=== PATIENT | female | born 1935 | race Caucasian/White ===

== ENCOUNTER 2019-09-13 14:55 | Emergency (ER) | payer MEDICARE, MEDICAID, SELFPAY ==
[2019-09-13 14:57] VITALS: BP 128/81; PULSE 62; RESP 20; TEMP 37.1; O2SAT 99; BMI 42.9
[2019-09-13 15:26] VITALS: BP 124/90; PULSE 74; RESP 18; O2SAT 100
--- NOTE | 2019-09-13 15:51 | PC.NURSE ---
Dr. Contreras pagevicky
--- NOTE | 2019-09-13 15:52 | PC.NURSE ---
speaking with Dr. Contreras
--- NOTE | 2019-09-13 16:02 | PC.NURSE ---
Dr. Wan paged
[2019-09-13 16:30] VITALS: BP 131/70; PULSE 77; RESP 18; O2SAT 99
--- NOTE | 2019-09-13 18:38 | HMH.EDRECH ---
ED Disposition Clinical Impression: Encounter for wound re-check, Tracheostomy complication, unspecified Disposition: Home, Self-Care Condition on Discharge: Good Referrals: Provider,Referral, [Primary Care Provider] - - Critical Care Critical Care Time: No Attestation: On 09/13/19, the high probability of a clinically significant, sudden or life threatening deterioration of the following system(s) required my full and direct attention, intervention and personal management. The time I documented below is in addition to time spent performing reported procedures but includes the following listed in this critical care notation. Medical Decision Making - Medical Records Medical records reviewed: Yes: I reviewed the patient's medical records. - Esdras Inquiry Pt receiving controlled substance: No Vital Signs: 09/13/19 14:57 09/13/19 15:26 09/13/19 16:30 Temperature 98.7 F Temperature Source Oral Pulse Rate [Right Brachial] 62 74 77 Respiratory Rate 20 18 18 Blood Pressure [Right Arm] 128/81 124/90 131/70 Blood Pressure Mean [Right Arm] 96 101 90 Blood Pressure Source [Right Arm] Automatic Cuff Automatic Cuff Blood Pressure Position [Right Arm] Sitting Sitting Sitting 02 Sat by Pulse Oximetry 99 100 99 Oxygen Delivery Method Nasal Cannula Nasal Cannula Nasal Cannula Oxygen Flow Rate (LPM) 2 2 2 - Lab Data Lab results reviewed: Yes: I reviewed the patient's lab results. Medical Decision Narrative: Dr. Dr. Wan and he stated if it is a trach is pulled out to insert a smaller 1 obviously if patient has able to hold a conversation can she can have a cuffed trach but she can have a non-cuffed trach. But with repositioning the patient and repositioning the tracheostomy tube along with respiratory by my side they determined that the trach was not loose that it was in an appropriate way and that it just needed to be secured. Recheck HPI - General Chief Complaint: Recheck/Abnormal Lab/Rx Stated Complaint: TRACH DISLODGED Time Seen by Provider: 09/13/19 18:38 Mode of Arrival: EMS Limitations: Physical Limitations Description of Symptoms (Recalled from ER Triage Doc. by RN): PATIENT BROUGHT IN BY EMS FROM [facility] WHO SENT HER HERE BECAUSE HER TRACH HAS BECOME DISLODGED AND NEEDS TO BE REPLACED. NO DISTRESS NOTED AT THIS TIME. O2 SAT 99% WITH NC - History of Present Illness HPI narrative: 84-year-old female presents the ED from the correction. care home states that she feels like the tracheostomy has come out. In examining the patient and getting history from the patient she is able to speak with complete sentences. She is in no respiratory distress. Patient has no acute issues. - Related Data Home Medications Medication Instructions Recorded Confirmed Buspirone HCl [Buspar 10mg 10 mg PO BID PRN 05/16/19 06/17/19 tablet] Calcium Carbonate/Vitamin D3 1 each PO BID 05/16/19 06/17/19 [Calcium 500 + Vit D Caplet] Escitalopram Oxalate [Lexapro] 10 mg PO HS 05/16/19 06/17/19 Famotidine [Pepcid 20mg Tablet] 20 mg PO BID 05/16/19 06/17/19 Furosemide [Lasix 20mg tab] 20 mg PO DAILY 05/16/19 06/17/19 Ipratropium/Albuterol Sulfate 3 ml IH Q6H 05/16/19 06/17/19 [Duoneb 3mL neb] Metoprolol Succinate 50 mg PO BID 05/16/19 06/17/19 Multivitamin [Multivitamins] 1 each PO DAILY 05/16/19 06/17/19 Potassium Bicarbonate/Cit AC 20 meq PO BID 05/16/19 06/17/19 [Effer-K 20 Meq Tablet Eff] Sennosides/Docusate Sodium [Senna 1 each PO BID 05/16/19 06/17/19 Plus Tablet] Sulfamethoxazole/Trimethoprim 1 each PO BID 05/16/19 06/17/19 [Bactrim DS tablet] Tramadol HCl [Tramadol 50mg 100 mg PO Q6H PRN 05/16/19 06/17/19 Tab] Rivaroxaban [Xarelto 10mg tablet] 10 mg PO DAILY 05/26/19 06/17/19 levETIRAcetam [Keppra Xr] 750 mg PO BID 06/17/19 06/17/19 Allergies Allergy/AdvReac Type Severity Reaction Status Date / Time levofloxacin [From Levaquin] Allergy Dao
[2019-09-13 20:00] VITALS: BP 112/78; PULSE 67; RESP 18; TEMP 36.7; O2SAT 98
--- NOTE | 2019-09-13 20:07 | PC.NURSE ---
report called to ying pollard
== END 2019-09-13 20:08 ==
PROVIDERS: Emergency Provider Family Medicine
DX: J95.00 Unspecified tracheostomy complication (principal); Z51.89 Encounter for other specified aftercare; I48.20 Chronic atrial fibrillation, unspecified; C34.90 Malignant neoplasm of unspecified part of unspecified bronchus or lung; J44.9 Chronic obstructive pulmonary disease, unspecified; Z86.73 Personal history of transient ischemic attack (TIA), and cerebral infarction without residual deficits; I10 Essential (primary) hypertension; Z79.899 Other long term (current) drug therapy; Z88.1 Allergy status to other antibiotic agents
CPT/HCPCS: 99283

== ENCOUNTER 2019-10-10 14:53 | Emergency (ER) | payer MEDICARE, MEDICAID, SELFPAY ==
[2019-10-10 14:53] VITALS: BP 121/84; PULSE 80; RESP 16; TEMP 37.2; O2SAT 100; BMI 31.3
--- NOTE | 2019-10-10 15:22 | XR_ITS ---
PROCEDURE: XR CHEST PORTABLE CLINICAL HISTORY: trach Shortness of breath, DIS large tracheostomy COMPARISON: XR CHEST AP from 05/16/2019 XR CHEST PORTABLE from 05/26/2019 FINDINGS: There is cardiomegaly with mild prominence of the mediastinum. Tracheostomy tube appears in good position on the AP view. Lateral view was not obtained. There is a small right pleural effusion with elevated right hemidiaphragm. There is mild widening of the posterior interspace between the 5th and the 6th rib on the right not significantly changed. IMPRESSION: Overall no change in cardiomegaly with small right effusion with tracheostomy tube in place Dictated by: Blaine King MD 10/10/2019 19:33 Electronically signed by Blaine King MD in [place] 10/10/2019 19:33
--- NOTE | 2019-10-10 15:27 | ECG_ITS ---
APPROVED REPORT Exam: Resting ECG HR:69 bpm ECG Measurements Heart Rate 69 AXES QRSd 90 QRS 14 QT 416 T 102 QTc 445 <Conclusion> Atrial fibrillation Nonspecific T wave abnormality, probably digitalis effect Abnormal ECG Electronically signed by : Catracho Yun, 10/12/2019 15:53:32
[2019-10-10 15:31] LABS: Microscopic, Urine URINE MICROSCOPIC (MICROSCOPIC)
[2019-10-10 15:34] LABS: Appearance,Urine CLEAR (Clear); Bilirubin,Urine Negative (Negative); Blood, Urine Negative (Negative); Color,Urine YELLOW (Yellow); Glucose,Urine (UA) Negative (Negative); Ketones,Urine Negative (Negative); Leukocyte Esterase,Urine Negative (Negative); Nitrate,Urine Negative (Negative); PH,Urine 5.5 (5.0-8.5); Protein,Urine Negative (Negative); Urobilinogen,Urine 0.2 EU/dl (0.2)
[2019-10-10 15:40] LABS: Basophils # 0.5 K/mm3 (0-0.2); Eosinophils # 0.1 K/mm3 (0.0-0.4); Eosinophils % 1.5 % (0.1-12.0); Hematocrit 34.8 % (37.0-47.0); Hemoglobin 11.7 g/dL (12.2-16.2); Lymphocytes # 2.1 K/mm3 (0.7-4.5); Lymphocytes % 37.7 % (10-50); Mean Corpuscular HGB Conc 33.7 g/dL (31.8-35.4); Mean Corpuscular Hemoglobin 34.1 pg (27.0-31.2); Mean Corpuscular Volume 101.2 fl (81-99); Mean Platelet Volume 10.6 fl (7.4-10.4); Monocytes # 0.6 K/mm3 (0.1-1.0); Monocytes % 11.4 % (1.7-9.3); Neutrophils # 2.7 K/mm3 (1.8-7.8); Neutrophils % 49.4 % (37.0-80.0); Platelet Count 108 K/mm3 (142-424); Red Blood Count 3.44 M/mm3 (4.20-5.40); Red Cell Distribution Width 21.2 % (11.5-17.5); White Blood Count 5.5 K/mm3 (4.8-10.8)
--- NOTE | 2019-10-10 15:40 | HMH.EDAMS ---
ED Disposition Clinical Impression: COPD (chronic obstructive pulmonary disease) Qualifiers: COPD type: unspecified COPD Qualified Code(s): J44.9 - Chronic obstructive pulmonary disease, unspecified A-fib Qualifiers: Atrial fibrillation type: unspecified chronic Qualified Code(s): I48.20 - Chronic atrial fibrillation, unspecified Disposition: Home, Self-Care Condition on Discharge: Good Instructions: How to Take Care of a Tracheostomy Additional Instructions: resume orders Referrals: Provider,Referral, MD [Primary Care Provider] - - Critical Care Critical Care Time: No Attestation: On 10/10/19, the high probability of a clinically significant, sudden or life threatening deterioration of the following system(s) required my full and direct attention, intervention and personal management. The time I documented below is in addition to time spent performing reported procedures but includes the following listed in this critical care notation. Medical Decision Making - Medical Records Medical records reviewed: Yes: I reviewed the patient's medical records. - Esdras Inquiry Pt receiving controlled substance: No Vital Signs: 10/10/19 14:53 Temperature 98.9 F Temperature Source Rectal Pulse Rate [Right] 80 Respiratory Rate 16 Blood Pressure [Right Arm] 121/84 Blood Pressure Mean [Right Arm] 96 02 Sat by Pulse Oximetry 100 Oxygen Delivery Method Nasal Cannula - Lab Data Lab results reviewed: Yes: I reviewed the patient's lab results. Lab Results 10/10/19 15:13: Urine Color Yellow, Urine Appearance Clear, Urine pH 5.5, Ur Specific [place] 1.020, Urine Protein Negative, Urine Glucose (UA) Negative, Urine Ketones Negative, Urine Blood Negative, Urine Nitrate Negative, Urine Bilirubin Negative, Urine Urobilinogen 0.2, Ur Leukocyte Esterase Negative, Urine RBC None, Urine WBC None, Ur Squamous Epith Cells 3-5, Amorphous Sediment 1+, Urine Bacteria None 10/10/19 15:20: WBC 5.5, RBC 3.44 L, Hgb 11.7 L, Hct 34.8 L, MCV 101.2 H, MCH 34.1 H, MCHC 33.7, RDW 21.2 H, Plt Count 108 L, MPV 10.6 H, Neut % (Auto) 49.4, Lymph % (Auto) 37.7, Carver % (Auto) 11.4 H, Eos % (Auto) 1.5, Baso % (Auto) 9.0 H, Neut # (Auto) 2.7, Lymph # (Auto) 2.1, Carver # (Auto) 0.6, Eos # (Auto) 0.1, Baso # (Auto) 0.5 H, ESR 86 H 10/10/19 15:20: Sodium 139, Potassium 4.3, Chloride 103, Carbon Dioxide 33 H, Anion Gap 7.3, BUN 25 H, Creatinine 0.70, Estimated Creat Clear 60, Estimated GFR 80, Est GFR ( Amer) 96, Glucose 114 H, Calcium 8.9, Total Bilirubin 0.4, AST 31, ALT 16, Alkaline Phosphatase 76, Troponin I < 0.01, C-Reactive Protein 14.7 H, Total Protein 7.4, Albumin 3.9, Globulin 3.5 H, Albumin/Globulin Ratio 1.1 10/10/19 15:20: Lactate 0.9 10/10/19 15:20: SARS-CoV-2 IgG Ab (Rapid) Negative, SARS-CoV-2 IgM Ab (Rapid) Negative Result diagrams: 10/10/19 15:20 10/10/19 15:20 Orders (Tests/Meds): ORDERS Category Date Time Status XR chest portable Stat Exams 10/10/19 15:22 Taken Levetiracetam (Keppra) Stat Lab 10/10/19 15:20 Received Troponin I Q3H Lab 10/10/19 18:30 Ordered Troponin I Q3H Lab 10/10/19 21:30 Ordered Blood Culture Stat Micro 10/10/19 15:20 Received Arterial Blood Gas Routine RT 10/10/19 15:15 Received ECG Request by /Trish Stat Y 10/10/19 15:21 Ordered - Radiology Data #1 Image(s): Chest Image Reviewed: Yes I reviewed the patient's radiology image Preliminary Findings: Abnormal (chronic rt sided changes ) - ECG Data Tracing #1 Arrhythmias present: afib Ischemic changes: non-specific ST-T wave changes ECG compared to prior tracings: there are no significant changes - Reevaluation(s) Time: 16:35 Reevaluation #1: stable Altered Mental Status HPI - General Chief Complaint: Recheck/Abnormal Lab/Rx Stated Complaint: TRACH DISLODGED Time Seen by Provider: 10/10/19 15:00 Mode of Arrival: EMS Source of Information: Patient, EMS, Medical Record Limitations: No Limitations Description of
[2019-10-10 15:44] LABS: Amorphous Sediment,Urine 1+ /lpf
[2019-10-10 15:51] LABS: Alanine Aminotransferase 16 U/L (12-78); Albumin Level 3.9 g/dl (3.5-5.0); Albumin/Globulin Ratio 1.1 (1.1-1.8); Alkaline Phosphatase 76 U/L (38-126); Anion Gap 7.3 mEq/L (5-15); Aspartate Amino Transferase 31 U/L (14-36); Bilirubin,Total 0.4 mg/dl (0.2-1.3); Blood Urea Nitrogen 25 mg/dl (7-17); Calcium 8.9 mg/dl (8.4-10.2); Carbon Dioxide 33 mmol/L (22.0-30.0); Chloride 103 mmol/L (98-107); Creatinine Clearance Estimated 60 mL/min (50-200); Estimated Glomerular Filt Rate 80 ml/min (>60); GFR (African American) 96 ML/MIN (>60); Globulin 3.5 g/dL (1.3-3.2); Glucose 114 mg/dl (74-100); Lactic Acid 0.9 mmol/L (0.7-2.1); Potassium 4.3 mmoL/L (3.5-5.1); Sodium 139 mmol/L (136-145); Total Protein,Serum 7.4 g/dl (6.3-8.2)
[2019-10-10 15:57] LABS: C-Reactive Protein 14.7 mg/L (0-4)
[2019-10-10 16:08] LABS: Coronavirus 19 IgG Antibody Negative (Negative); Coronavirus 19 IgM Antibody Negative (Negative); Troponin I < 0.01 ng/ml (0.00-0.034)
[2019-10-10 16:11] LABS: Erythrocyte Sedimentation Rate 86 mm/hr (0-30)
--- NOTE | 2019-10-10 16:33 | PC.NURSE ---
Report given to Shruthi at [facility]
[2019-10-10 17:04] VITALS: BP 123/87; PULSE 87; RESP 20; TEMP 36.8; O2SAT 97
[2019-10-11 08:58] LABS: ABG Base Excess 3.7 mmol/L (-2.4-2.3); ABG HCO3 28.2 mmhg (22.0-26.0); ABG Oxygen Saturation 97 % (90-100); ABG PCO2 44.5 mmhg (35.0-45.0); ABG PH 7.42 mmol/L (7.35-7.45); ABG TCO2 29.5 mmhg (23-27); Oxygen NC @ 32% %
[2019-10-11 08:59] LABS: Source Right Brachial
[2019-10-14 09:58] LABS: Levetiracetam (Keppra) 37.6 ug/mL (10.0-40.0)
== END 2019-10-10 17:05 | disposition home or self-care (01) ==
PROVIDERS: Emergency Provider Emergency Medicine
DX: J95.03 Malfunction of tracheostomy stoma (principal); J44.9 Chronic obstructive pulmonary disease, unspecified; I48.20 Chronic atrial fibrillation, unspecified; Z86.73 Personal history of transient ischemic attack (TIA), and cerebral infarction without residual deficits; G40.909 Epilepsy, unspecified, not intractable, without status epilepticus; Z79.899 Other long term (current) drug therapy
CPT/HCPCS: 71045; 80053; 80177; 81001; 82803; 83605; 84484; 85025; 85651; 86140; 86328; 87040; 93005; 99284

== ENCOUNTER 2019-10-20 20:00 | Observation (INO) | payer MEDICARE, MEDICAID, SELFPAY ==
[2019-10-20 20:02] VITALS: BP 114/51; PULSE 68; RESP 16; TEMP 36.5; O2SAT 92; BMI 39.9
[2019-10-20 20:30] VITALS: BP 110/45; PULSE 70; O2SAT 92
--- NOTE | 2019-10-20 20:49 | HMH.EDRECH ---
ED Disposition Clinical Impression: Tracheostomy malfunction, Obesity (BMI 30-39.9), Thrombocytopenia Disposition: Admitted as Observation Condition on Discharge: Fair - Critical Care Critical Care Time: No Attestation: On 10/20/19, the high probability of a clinically significant, sudden or life threatening deterioration of the following system(s) required my full and direct attention, intervention and personal management. The time I documented below is in addition to time spent performing reported procedures but includes the following listed in this critical care notation. Medical Decision Making - Medical Records Medical records reviewed: Yes: I reviewed the patient's medical records. - Esdras Inquiry Pt receiving controlled substance: No Vital Signs: 10/20/19 20:02 10/20/19 20:30 10/20/19 21:00 Temperature 97.7 F Temperature Source Oral Pulse Rate [Right Brachial] 68 70 79 Respiratory Rate 16 Blood Pressure [Right Arm] 114/51 L 110/45 L 119/36 L Blood Pressure Mean [Right Arm] 72 66 63 Blood Pressure Source [Right Arm] Automatic Cuff Blood Pressure Position [Right Arm] Sitting Sitting Sitting 02 Sat by Pulse Oximetry 92 L 92 L 92 L Oxygen Delivery Method Room Air Room Air Room Air 10/20/19 22:00 10/20/19 22:12 10/20/19 22:46 Temperature Temperature Source Pulse Rate [Right Brachial] 75 95 H 75 Respiratory Rate 18 Blood Pressure [Right Arm] 110/46 L 113/63 123/74 Blood Pressure Mean [Right Arm] 67 79 90 Blood Pressure Source [Right Arm] Automatic Cuff Automatic Cuff Blood Pressure Position [Right Arm] Sitting Sitting 02 Sat by Pulse Oximetry 93 L 97 93 L Oxygen Delivery Method Room Air Room Air Room Air 10/21/19 00:10 Temperature Temperature Source Pulse Rate [Right Brachial] 84 Respiratory Rate Blood Pressure [Right Arm] 116/54 L Blood Pressure Mean [Right Arm] 74 Blood Pressure Source [Right Arm] Automatic Cuff Blood Pressure Position [Right Arm] Sitting 02 Sat by Pulse Oximetry 94 L Oxygen Delivery Method Room Air - Lab Data Lab results reviewed: Yes: I reviewed the patient's lab results. Result diagrams: 10/21/19 00:50 Orders (Tests/Meds): ORDERS Category Date Time Status XR chest portable Stat Exams 10/20/19 20:59 Taken XR chest portable Stat Exams 10/20/19 23:02 Taken - Radiology Data #1 Image(s): Chest Image Reviewed: Yes I reviewed the patient's radiology image Preliminary Findings: Abnormal (trach dislodged) #2 Image(s): Chest Image Reviewed: Yes I reviewed the patient's radiology image Preliminary Findings: Abnormal (still dislodged ) - Physician Consults Physician Consulted: [email or web address] Reason -: Pt condition Recheck HPI - General Chief Complaint: Recheck/Abnormal Lab/Rx Stated Complaint: pulled out trach Time Seen by Provider: 10/20/19 20:15 Mode of Arrival: EMS Source of Information: Patient, EMS, Medical Record Limitations: No Limitations Description of Symptoms (Recalled from ER Triage Doc. by RN): Patient brought in by [facility] with report of patient pulling out trach. Patient reports she has an appointment with Dr. Wan on friday about getting the trach taken out. - History of Present Illness HPI narrative: pt pulled trach at f and sent for eval - no specific c/o put has some element of local pain and no resp distress but sob MD complaint: other (trach dislodged ) Initial visit (ago): hour(s) Symptoms since prior visit: no new symptoms Associated symptoms: none - Related Data Home Medications Medication Instructions Recorded Confirmed Buspirone HCl [Buspar 10mg 10 mg PO BID PRN 05/16/19 10/10/19 tablet] Calcium Carbonate/Vitamin D3 1 each PO BID 05/16/19 10/10/19 [Calcium 500 + Vit D Caplet] Escitalopram Oxalate [Lexapro] 10 mg PO HS 05/16/19 10/10/19 Famotidine [Pepcid 20mg Tablet] 20 mg PO BID 05/16/19 10/10/19 Furosemide [Lasix 20mg tab] 20 mg PO DAILY 05/16/19 10/10/19
--- NOTE | 2019-10-20 20:59 | XR_ITS ---
PROCEDURE: XR CHEST PORTABLE CLINICAL HISTORY: TRACH PLACEMENT COMPARISON: XR CHEST AP from 05/16/2019 XR CHEST PORTABLE from 05/26/2019 XR CHEST PORTABLE from 10/10/2019 FINDINGS: Cardiomegaly without failure. Right-sided pleural effusion with mild right basilar airspace disease. Tracheostomy tube has different appearance compared to the previous exam of 10/10/2019 and could be due to mild displacement. The left lung is clear. Degenerative changes are present in the shoulders. IMPRESSION: Tracheostomy tube is in a somewhat different position and may be due to misplacement. CT may confirm. Cardiomegaly with persistent right effusion and right basilar airspace disease Dictated by: Blaine King MD 10/21/2019 08:22 Electronically signed by Blaine King MD in [place] 10/21/2019 08:22
[2019-10-20 21:00] VITALS: BP 119/36; PULSE 79; O2SAT 92
[2019-10-20 22:00] VITALS: BP 110/46; PULSE 75; O2SAT 93
[2019-10-20 22:12] VITALS: BP 113/63; PULSE 95; RESP 18; O2SAT 97
[2019-10-20 22:46] VITALS: BP 123/74; PULSE 75; O2SAT 93
--- NOTE | 2019-10-20 23:02 | XR_ITS ---
PROCEDURE: XR CHEST PORTABLE CLINICAL HISTORY: trach placement COMPARISON: XR CHEST PORTABLE from 05/26/2019 XR CHEST PORTABLE from 10/10/2019 XR CHEST PORTABLE from 10/20/2019 FINDINGS: Cardiomegaly without failure. Small right pleural effusion with right basilar atelectasis. Tracheostomy tube is present. The tip overlies the region of the upper airway however, the tube does not appear to be fully seated compared to 10/10/2019. Evaluation is limited on the single AP view. Chest CT would confirm definite position. Displacement is concern. IMPRESSION: 1. Cardiomegaly with right effusion. 2. Tracheostomy tube does not appear to be fully seated as it did on 10/10/2019 concerning for misplacement Dictated by: Blaine King MD 10/21/2019 07:45 Electronically signed by Blaine King MD in [place] 10/21/2019 07:45
[2019-10-21 00:10] VITALS: BP 116/54; PULSE 84; O2SAT 94
[2019-10-21 01:02] LABS: Basophils % 0.7 % (0.1-2.0); Eosinophils # 0.1 K/mm3 (0.0-0.4); Eosinophils % 1.2 % (0.1-12.0); Hematocrit 34.5 % (37.0-47.0); Hemoglobin 11.1 g/dL (12.2-16.2); Lymphocytes # 1.9 K/mm3 (0.7-4.5); Lymphocytes % 38.9 % (10-50); Mean Corpuscular HGB Conc 32.2 g/dL (31.8-35.4); Mean Corpuscular Hemoglobin 33.3 pg (27.0-31.2); Mean Corpuscular Volume 103.4 fl (81-99); Mean Platelet Volume 10.7 fl (7.4-10.4); Monocytes # 0.5 K/mm3 (0.1-1.0); Monocytes % 9.6 % (1.7-9.3); Neutrophils # 2.4 K/mm3 (1.8-7.8); Neutrophils % 49.6 % (37.0-80.0); Platelet Count 113 K/mm3 (142-424); Red Blood Count 3.33 M/mm3 (4.20-5.40); Red Cell Distribution Width 21.9 % (11.5-17.5); White Blood Count 4.9 K/mm3 (4.8-10.8)
[2019-10-21 01:05] VITALS: BP 115/61; PULSE 71; RESP 16; O2SAT 93
[2019-10-21 01:08] LABS: Alanine Aminotransferase 16 U/L (12-78); Albumin Level 3.9 g/dl (3.5-5.0); Albumin/Globulin Ratio 1.2 (1.1-1.8); Alkaline Phosphatase 91 U/L (38-126); Anion Gap 13.5 mEq/L (5-15); Aspartate Amino Transferase 30 U/L (14-36); Bilirubin,Total 0.5 mg/dl (0.2-1.3); Blood Urea Nitrogen 26 mg/dl (7-17); Calcium 9.1 mg/dl (8.4-10.2); Carbon Dioxide 31 mmol/L (22.0-30.0); Chloride 100 mmol/L (98-107); Creatinine Clearance Estimated 65 mL/min (50-200); Estimated Glomerular Filt Rate 68 ml/min (>60); GFR (African American) 83 ML/MIN (>60); Globulin 3.2 g/dL (1.3-3.2); Glucose 114 mg/dl (74-100); Potassium 4.5 mmoL/L (3.5-5.1); Sodium 140 mmol/L (136-145); Total Protein,Serum 7.1 g/dl (6.3-8.2)
[2019-10-21 01:51] VITALS: BP 132/71; PULSE 85; RESP 16; TEMP 37; O2SAT 95
--- NOTE | 2019-10-21 01:54 | PC.NURSE ---
PT ARRIVED TO THE FLOOR VIA STRETCHER FROM ED @ 1494.
[2019-10-21 02:12] VITALS: BP 141/62; PULSE 93; RESP 20; TEMP 37.1; O2SAT 96; BMI 38.5
[2019-10-21 04:00] VITALS: BP 110/79; PULSE 82; RESP 20; TEMP 36.8; O2SAT 93
--- NOTE | 2019-10-21 05:32 | PC.NURSE ---
MD NOTIFIED OF CHANGE IN PT'S TRACH POSITIONING. PT C/O SEVERE PAIN IN NECK. PT REQUESTING TYLENOL FOR PAIN. WAITING FOR RETURN CALL.
--- NOTE | 2019-10-21 06:31 | PC.NURSE ---
MD IS AWARE OF CHANGE IN POSITIONING OF TRACH, NO NEW ORDERS AT THIS TIME. ADMINISTERED ORDERED TYLENOL PER [facility]. PT TOLERATED WELL. NO RESIDUAL NOTED PRIOR TO [facility]. WILL CONTINUE TO MONITOR. GAVE EDUCATION TO PT ABOUT NOT PULLING AT TRACH.
[2019-10-21 06:45] LABS: Chloride 105 mmol/L (98-107); Sodium 139 mmol/L (136-145)
[2019-10-21 06:48] LABS: Blood Urea Nitrogen 21 mg/dl (7-17); Creatinine Clearance Estimated 63 mL/min (50-200); Estimated Glomerular Filt Rate 68 ml/min (>60); GFR (African American) 83 ML/MIN (>60)
[2019-10-21 06:49] LABS: Calcium 8.6 mg/dl (8.4-10.2); Carbon Dioxide 29 mmol/L (22.0-30.0); Glucose 110 mg/dl (74-100)
--- NOTE | 2019-10-21 07:00 | PC.NURSE ---
A&O TO SELF. PT RESTED WELL WITH EYES CLOSED THIS AM UNTIL 0500 WHEN C/O PAIN IN NECK. TOLERATED RA WELL WITH NO C/O SOA. BILATERAL BREATH SOUNDS NOTED CLEAR T/O. REMAINS NPO FOR ENT CONSULT THIS AM. PT STATES SHE CAN NOT WALK BUT IS REQUESTING CRUTCHES FOR USE. SHE STATES MAYBE WITH CRUTCHES SHE WILL BE ABLE TO WALK AGAIN . THIS RN WAS GIVEN IN REPORT FROM ED THAT SHE IS WHEELCHAIR BOUND AT [facility]. VSS. REMAINS SAFE. SEIZURE PADS IN PLACE FOR PRECAUTIONS. CALL LIGHT WITHIN REACH. WILL CONTINUE TO MONITOR.
[2019-10-21 07:02] LABS: Hematocrit 32.2 % (37.0-47.0); Hemoglobin 10.1 g/dL (12.2-16.2); Mean Corpuscular Volume 104.6 fl (81-99); Red Blood Count 3.08 M/mm3 (4.20-5.40)
[2019-10-21 07:03] LABS: Mean Corpuscular HGB Conc 31.5 g/dL (31.8-35.4); Mean Corpuscular Hemoglobin 32.9 pg (27.0-31.2); Mean Platelet Volume 10.3 fl (7.4-10.4); Platelet Count 98 K/mm3 (142-424); Red Cell Distribution Width 21.6 % (11.5-17.5)
[2019-10-21 07:04] LABS: Basophils # 0.1 K/mm3 (0-0.2); Basophils % 1.7 % (0.1-2.0); Eosinophils # 0.1 K/mm3 (0.0-0.4); Eosinophils % 1.4 % (0.1-12.0); Lymphocytes # 2.1 K/mm3 (0.7-4.5); Lymphocytes % 41.1 % (10-50); Monocytes # 0.4 K/mm3 (0.1-1.0); Monocytes % 8.8 % (1.7-9.3); Neutrophils # 2.3 K/mm3 (1.8-7.8)
--- NOTE | 2019-10-21 07:13 | SW/DCPLANNER ---
Addendum entered by Dayan De Leon 10/21/19 10:51: SENT UPDATES AND COVID19 RESULTS TO [facility] THIS MORNING... PATIENT IS DISCHARGING BACK THERE TODAY... SHE WILL BE AT AN ICF LEVEL OF CARE.. Original Note: PATIENT ADMITTED TO [facility] WITH TRACH MALFUNCTION: SHE IS A LONGSTANDING RESIDENT OF [facility] AND IS ON A MEDICAID BEDHOLD...SHE WILL RETURN BACK TO HER [facility] BED ONCE SHE IS MEDICALLY READY TO DISCHARGE. DISPOSITION UNCERTAIN AT THIS TIME.. CM WILL FOLLOW..
[2019-10-21 07:50] VITALS: BP 112/67; PULSE 91; RESP 17; TEMP 36.6; O2SAT 96
--- NOTE | 2019-10-21 07:58 | HMH.HP ---
*Admission Date: 10/21/19 *Chief complaint: trach malfunction [facility] History I have reviewed the patient's past medical history: Yes Medical History: Reports:: Atrial Fibrillation, Cancer (lung carcinoma), Chronic Obstructive Pulmonary Disease (COPD), Cerebrovascular Accident, Hypertension, Seizures, Transient Ischemic Attacks (TIA) Denies:: Diabetes Mellitus Type 1, Diabetes Mellitus Type 2, Internal Pacemaker, MRSA *Have you ever received a pneumonia vaccine?: No (unable to obtain) *Have you received a flu vaccine this season?: No (unable to obtain) Other Surgeries: Yes: Other (Craniotomy). No: Pacemaker - *Social History Smoking Status: Unknown if ever smoked Tobacco Type: cigarettes Alcohol Intake: never *Occupational Status:: retired Housing: half-way *Travel in the last 8 weeks: None Family Hx:: Unable to obtain Review of Systems - Review of Systems Review of systems:: pertinent systems reviewed and negative unless documented below - *Neurologic Denies localized weakness, Denies seizure-like activity Meds Home Medications Medication Instructions Recorded Confirmed Type Buspirone HCl [Buspar 10mg 10 mg PO BID PRN 05/16/19 10/21/19 History tablet] Calcium Carbonate/Vitamin D3 1 each PO BID 05/16/19 10/21/19 History [Calcium 500 + Vit D Caplet] Escitalopram Oxalate [Lexapro] 10 mg PO HS 05/16/19 10/21/19 History Famotidine [Pepcid 20mg Tablet] 20 mg PO BID 05/16/19 10/21/19 History Furosemide [Lasix 20mg tab] 20 mg PO DAILY 05/16/19 10/21/19 History Ipratropium/Albuterol Sulfate 3 ml IH Q6H 05/16/19 10/21/19 History [Duoneb 3mL neb] Multivitamin [Multivitamins] 1 each PO DAILY 05/16/19 10/21/19 History Potassium Bicarbonate/Cit AC 20 meq PO BID 05/16/19 10/21/19 History [Effer-K 20 Meq Tablet Eff] Sennosides/Docusate Sodium [Senna 1 each PO BID 05/16/19 10/21/19 History Plus Tablet] Sulfamethoxazole/Trimethoprim 1 each PO BID 05/16/19 10/21/19 History [Bactrim DS tablet] Tramadol HCl [Tramadol 50mg 100 mg PO Q6H PRN 05/16/19 10/21/19 History Tab] Rivaroxaban [Xarelto 10mg tablet] 10 mg PO DAILY 05/26/19 10/21/19 History levETIRAcetam [Keppra Xr] 750 mg PO BID 06/17/19 10/21/19 History Memantine HCl [Memantine 10mg 10 mg PO BID 10/21/19 10/21/19 History Tablet] Metoprolol Tartrate [Lopressor 25 mg PO BID 10/21/19 10/21/19 History 25mg tablet] polyethylene glycoL 3350 [Miralax 17 gm PO DAILY 10/21/19 10/21/19 History Powder] Allergies Allergy/AdvReac Type Severity Reaction Status Date / Time levofloxacin [From Levaquin] Allergy Verified 05/16/19 22:53 Exam Vital signs and Labs for Last 24 Hours: Temp Pulse Resp BP Pulse Ox 97.8 F 91 H 17 112/67 96 10/21/19 07:50 10/21/19 07:50 10/21/19 07:50 10/21/19 07:50 10/21/19 07:50 Laboratory Results - last 24 hr 10/21/19 00:50: WBC 4.9, RBC 3.33 L, Hgb 11.1 L, Hct 34.5 L, MCV 103.4 H, MCH 33.3 H, MCHC 32.2, RDW 21.9 H, Plt Count 113 L, MPV 10.7 H, Neut % (Auto) 49.6, Lymph % (Auto) 38.9, Amelia % (Auto) 9.6 H, Eos % (Auto) 1.2, Baso % (Auto) 0.7, Neut # (Auto) 2.4, Lymph # (Auto) 1.9, Amelia # (Auto) 0.5, Eos # (Auto) 0.1, Baso # (Auto) 0.0 10/21/19 00:50: Sodium 140, Potassium 4.5, Chloride 100, Carbon Dioxide 31 H, Anion Gap 13.5, BUN 26 H, Creatinine 0.80, Estimated Creat Clear 65, Estimated GFR 68, Est GFR ( Amer) 83, Glucose 114 H, Calcium 9.1, Total Bilirubin 0.5, AST 30, ALT 16, Alkaline Phosphatase 91, Total Protein 7.1, Albumin 3.9, Globulin 3.2, Albumin/Globulin Ratio 1.2 10/21/19 06:00: WBC 5.0, RBC 3.08 L, Hgb 10.1 L, Hct 32.2 L, MCV 104.6 H, MCH 32.9 H, MCHC 31.5 L, RDW 21.6 H, Plt Count 98 L, MPV 10.3, Neut % (Auto) 47.0, Lymph % (Auto) 41.1, Amelia % (Auto) 8.8, Eos % (Auto) 1.4, Baso % (Auto) 1.7, Neut # (Auto) 2.3, Lymph # (Auto) 2.1, Amelia # (Auto) 0.4, Eos # (Auto) 0.1, Baso # (Auto) 0.1 10/21/19 06:00: Sodium 139, Potassium 4.0, Chloride 105, Carbon Dioxide 29, Anion Gap 9
--- NOTE | 2019-10-21 08:08 | HMH.PHAVTE ---
[facility] Pharmacy VTE Monitoring - Patient Demographics Admission date: 10/20/19 Report Date: 10/21/19 Time: 08:08 Allergies/Adverse Reactions: Patient Allergies levofloxacin [From Levaquin] Allergy (Verified 05/16/19 22:53) Height: 1.57 m Weight: 94.858 kg Patient Problems: Current Active Problems Tracheostomy malfunction (Acute) Obesity (BMI 30-39.9) (Acute) Thrombocytopenia (Acute) - VTE Risk Labs: VTE Related Lab Results Hgb 10.1 g/dL (12.2-16.2) L 10/21/19 06:00 Hct 32.2 % (37.0-47.0) L 10/21/19 06:00 Plt Count 98 K/mm3 (142-424) L 10/21/19 06:00 BUN 21 mg/dl (7-17) H 10/21/19 06:00 Creatinine 0.80 mg/dl (0.52-1.04) 10/21/19 06:00 Estimated Creat Clear 63 mL/min (50-200) 10/21/19 06:00 Was VTE Risk Assessment Performed: Yes VTE Score: 6 VTE Risk Level: Moderate Risk Clinical Trial Participant: No - Prophylaxis VTE Prophylaxis Ordered?: Yes Types of VTE Prophylaxis: TEDS Knee High Location of Applied Device: Not Applicable
[2019-10-21 08:38] LABS: Adenovirus,PCR Not Detected (NotDetected); Bordetella Pertussis Not Detected (NotDetected); Chlamydophila Pneumoniae, PCR Not Detected (NotDetected); Coronavirus 19, PCR Not Detected (NotDetected); Coronavirus 229E Not Detected (NotDetected); Coronavirus NL63 Not Detected (NotDetected); Coronavirus OC43 Not Detected (NotDetected); Coronovirus HKU1,PCR Not Detected (NotDetected); Human Metapneumovirus Not Detected (NotDetected); Influenza A, PCR Not Detected (NotDetected); Influenza AH1, 2009 Not Detected (NotDetected); Influenza AH1, PCR Not Detected (NotDetected); Influenza AH3,PCR Not Detected (NotDetected); Influenza B, PCR Not Detected (NotDetected); Mycoplasma Pneumoniae, PCR Not Detected (NotDected); Parainfluenza 1, PCR Not Detected (NotDetected); Parainfluenza 2, PCR Not Detected (NotDetected); Parainfluenza 3, PCR Not Detected (NotDetected); Parainfluenza 4, PCR Not Detected (NotDetected); Respiratory Syncytial Virus Not Detected (NotDetected); Rhinovirus/Enterovirus Not Detected (NotDetected)
--- NOTE | 2019-10-21 09:32 | HMH.PHAINT ---
MEDICATION RECONCILIATION COMPLETED ON PATIENT USING [facility] FROM [facility]. -ANAND PICKETT, LIANNED
--- NOTE | 2019-10-21 10:32 | HMH.HPDC ---
General - General Admission date:: 10/21/19 Discharge date: 10/21/19 *Admission Date: 10/20/19 *Chief complaint: Tracheostomy malfunction *History of present illness: Ms. Alcala is an 84-year-old female with multiple comorbidities including seizure disorder, tracheostomy, G-tube dependent, debility. Resented to the ER overnight due to concern for her tracheostomy tube being removed. Patient reportedly has follow-up with Dr. Wan next week to assess permanent removal of this device as she has been breathing comfortably on room air with use of a Passy-Yolanda valve for speech. She was no respiratory distress. Labs were unremarkable. Work-up in general was benign but she was kept for ENT consult. Tracheostomy was replaced last night while in the ER. Patient is remained hemodynamically stable since admission. Afebrile. No concerns this morning. [facility] History I have reviewed the patient's past medical history: Yes (Reviewed from past medical records as patient is a poor historian) Medical History: Reports:: Atrial Fibrillation, Cancer (lung carcinoma), Chronic Obstructive Pulmonary Disease (COPD), Cerebrovascular Accident, Hypertension, Seizures, Transient Ischemic Attacks (TIA) Denies:: Diabetes Mellitus Type 1, Diabetes Mellitus Type 2, Internal Pacemaker, MRSA *Have you ever received a pneumonia vaccine?: No (unable to obtain) *Have you received a flu vaccine this season?: No (unable to obtain) Other Surgeries: Yes: Other (Craniotomy). No: Pacemaker - *Social History Smoking Status: Unknown if ever smoked Tobacco Type: cigarettes Alcohol Intake: never *Occupational Status:: retired Housing: jail *Travel in the last 8 weeks: None Family Hx:: Unable to obtain Review of Systems - Review of Systems Review of systems:: pertinent systems reviewed and negative unless documented below (Difficult to obtain though as she is a poor historian. Complains only of foot pain today. 14 point review of systems performed, pertinent positives and negatives as per HPI) - *Neurologic Denies localized weakness, Denies seizure-like activity Exam Vital signs and Labs for Last 24 Hours: Temp Pulse Resp BP Pulse Ox 97.8 F 91 H 17 112/67 96 10/21/19 07:50 10/21/19 07:50 10/21/19 07:50 10/21/19 07:50 10/21/19 07:50 Laboratory Results - last 24 hr 10/21/19 00:50: WBC 4.9, RBC 3.33 L, Hgb 11.1 L, Hct 34.5 L, MCV 103.4 H, MCH 33.3 H, MCHC 32.2, RDW 21.9 H, Plt Count 113 L, MPV 10.7 H, Neut % (Auto) 49.6, Lymph % (Auto) 38.9, [place] % (Auto) 9.6 H, Eos % (Auto) 1.2, Baso % (Auto) 0.7, Neut # (Auto) 2.4, Lymph # (Auto) 1.9, [place] # (Auto) 0.5, Eos # (Auto) 0.1, Baso # (Auto) 0.0 10/21/19 00:50: Sodium 140, Potassium 4.5, Chloride 100, Carbon Dioxide 31 H, Anion Gap 13.5, BUN 26 H, Creatinine 0.80, Estimated Creat Clear 65, Estimated GFR 68, Est GFR ( Amer) 83, Glucose 114 H, Calcium 9.1, Total Bilirubin 0.5, AST 30, ALT 16, Alkaline Phosphatase 91, Total Protein 7.1, Albumin 3.9, Globulin 3.2, Albumin/Globulin Ratio 1.2 10/21/19 06:00: WBC 5.0, RBC 3.08 L, Hgb 10.1 L, Hct 32.2 L, MCV 104.6 H, MCH 32.9 H, MCHC 31.5 L, RDW 21.6 H, Plt Count 98 L, MPV 10.3, Neut % (Auto) 47.0, Lymph % (Auto) 41.1, [place] % (Auto) 8.8, Eos % (Auto) 1.4, Baso % (Auto) 1.7, Neut # (Auto) 2.3, Lymph # (Auto) 2.1, [place] # (Auto) 0.4, Eos # (Auto) 0.1, Baso # (Auto) 0.1 10/21/19 06:00: Sodium 139, Potassium 4.0, Chloride 105, Carbon Dioxide 29, Anion Gap 9.0, BUN 21 H, Creatinine 0.80, Estimated Creat Clear 63, Estimated GFR 68, Est GFR ( Amer) 83, Glucose 110 H, Calcium 8.6 10/21/19 08:30: Chlamy pneumoniae PCR Not detected, Adenovirus (PCR) Not detected, B. pertussis DNA (PCR) Not detected, Coronavirus OC43 (PCR) Not detected, Coronavirus HKU1 (PCR) Not detected, Coronavirus 229E (PCR) Not detected, COVID-19 PCR Not detected, Coronavirus NL63 (PCR) Not detected, Human Metapneumovir PCR Not detected, Influenza A (H1) PCR Not detected, Influ A (H1N1/09) PCR Not
--- NOTE | 2019-10-21 14:15 | PC.NURSE ---
THIS RN PROVIDED REPORT TO JALEN GOVEA AT [facility]. THIS RN INFORMED XUAN THAT PATIENT'S OSTOMY DRESSING IS TO BE CHANGED DAILY. TO COVER WITH GAUZE AND SECURE WITH TAPE, PER DR. CARRASQUILLO. XUAN VERBALIZED AN UNDERSTANDING. [facility] SERVICE TRANSPORTED PATIENT. NO OTHER NEEDS OR CONCERNS AT D/C.
--- NOTE | 2019-10-21 15:02 | HMH.GSCON ---
*Admission Date: 10/20/19 *Reason for consult:: Status of tracheotomy after being removed last p.m. *History of present illness: Patient presented to ER last p.m. after tracheotomy was removed while patient coughing. Patient presents in no distress. Review of Systems - *Neurologic Denies localized weakness, Denies seizure-like activity [facility] History I have reviewed the patient's past medical history: Yes Medical History: Reports:: Atrial Fibrillation, Cancer (lung carcinoma), Chronic Obstructive Pulmonary Disease (COPD), Cerebrovascular Accident, Hypertension, Seizures, Transient Ischemic Attacks (TIA) Denies:: Diabetes Mellitus Type 1, Diabetes Mellitus Type 2, Internal Pacemaker, MRSA *Have you ever received a pneumonia vaccine?: No *Have you received a flu vaccine this season?: No Other Surgeries: Yes: Other (Craniotomy). No: Pacemaker - *Social History Smoking Status: Unknown if ever smoked Tobacco Type: cigarettes Alcohol Intake: never *Occupational Status:: retired Housing: half-way *Travel in the last 8 weeks: None Family Hx:: Unable to obtain [facility] Home Medications Medication Instructions Recorded Confirmed Type Buspirone HCl [Buspar 10mg 10 mg PO BID 05/16/19 10/21/19 History tablet] Calcium Carbonate/Vitamin D3 1 each PO BID 05/16/19 10/21/19 History [Calcium 500-Vit D3 125 Caplet] Escitalopram Oxalate [Lexapro] 10 mg PO HS 05/16/19 10/21/19 History Famotidine [Pepcid 20mg Tablet] 20 mg PO BID 05/16/19 10/21/19 History Furosemide [Lasix 20mg tablet] 20 mg PO DAILY 05/16/19 10/21/19 History Ipratropium/Albuterol Sulfate 3 ml IH Q6H 05/16/19 10/21/19 History [Duoneb 3mL neb] Multivitamin [Multivitamins] 1 each PO DAILY 05/16/19 10/21/19 History Potassium Bicarbonate/Cit AC 20 meq PO BID 05/16/19 10/21/19 History [Effer-K 20 Meq Tablet Eff] Sennosides/Docusate Sodium [Senna 1 each PO BID 05/16/19 10/21/19 History Plus Tablet] Sulfamethoxazole/Trimethoprim 1 each PO DAILY 05/16/19 10/21/19 History [Bactrim DS tablet] Rivaroxaban [Xarelto 10mg tablet] 10 mg PO DAILY 05/26/19 10/21/19 History levETIRAcetam [Keppra Xr] 750 mg PO BID 06/17/19 10/21/19 History Memantine HCl [Memantine 10mg 10 mg PO BID 10/21/19 10/21/19 History Tablet] Metoprolol Tartrate [Lopressor 25 mg PO BID 10/21/19 10/21/19 History 25mg tablet] Tramadol HCl [Tramadol 50mg 100 mg PO Q8HP PRN 10/21/19 10/21/19 History Tab] polyethylene glycoL 3350 [Miralax 17 gm PO DAILY 10/21/19 10/21/19 History Powder] Allergies Allergy/AdvReac Type Severity Reaction Status Date / Time levofloxacin [From Levaquin] Allergy Verified 05/16/19 22:53 Exam Vital signs and Labs for Last 24 Hours: Temp Pulse Resp BP Pulse Ox 97.8 F 91 H 17 112/67 96 10/21/19 07:50 10/21/19 07:50 10/21/19 07:50 10/21/19 07:50 10/21/19 07:50 Laboratory Results - last 24 hr 10/21/19 00:50: WBC 4.9, RBC 3.33 L, Hgb 11.1 L, Hct 34.5 L, MCV 103.4 H, MCH 33.3 H, MCHC 32.2, RDW 21.9 H, Plt Count 113 L, MPV 10.7 H, Neut % (Auto) 49.6, Lymph % (Auto) 38.9, [place] % (Auto) 9.6 H, Eos % (Auto) 1.2, Baso % (Auto) 0.7, Neut # (Auto) 2.4, Lymph # (Auto) 1.9, [place] # (Auto) 0.5, Eos # (Auto) 0.1, Baso # (Auto) 0.0 10/21/19 00:50: Sodium 140, Potassium 4.5, Chloride 100, Carbon Dioxide 31 H, Anion Gap 13.5, BUN 26 H, Creatinine 0.80, Estimated Creat Clear 65, Estimated GFR 68, Est GFR ( Amer) 83, Glucose 114 H, Calcium 9.1, Total Bilirubin 0.5, AST 30, ALT 16, Alkaline Phosphatase 91, Total Protein 7.1, Albumin 3.9, Globulin 3.2, Albumin/Globulin Ratio 1.2 10/21/19 06:00: WBC 5.0, RBC 3.08 L, Hgb 10.1 L, Hct 32.2 L, MCV 104.6 H, MCH 32.9 H, MCHC 31.5 L, RDW 21.6 H, Plt Count 98 L, MPV 10.3, Neut % (Auto) 47.0, Lymph % (Auto) 41.1, [place] % (Auto) 8.8, Eos % (Auto) 1.4, Baso % (Auto) 1.7, Neut # (Auto) 2.3, Lymph # (Auto) 2.1, [place] # (Auto) 0.4, Eos # (Auto) 0.1, Baso # (Auto) 0.1 10/21/19 06:00: Sodium 139, Potassium 4.0
== END 2019-10-21 13:15 ==
LOC: ER 20:28 → 2ND 10-21 00:13
PROVIDERS: Internal Medicine Adolescent Medicine; Admitting Provider Emergency Medicine; Emergency Provider Emergency Medicine; PCP Internal Medicine Adolescent Medicine; Visit Provider Internal Medicine Adolescent Medicine
DX: Z43.0 Encounter for attention to tracheostomy (principal); I48.20 Chronic atrial fibrillation, unspecified; I10 Essential (primary) hypertension; J44.9 Chronic obstructive pulmonary disease, unspecified; C34.90 Malignant neoplasm of unspecified part of unspecified bronchus or lung; G40.909 Epilepsy, unspecified, not intractable, without status epilepticus; Z79.899 Other long term (current) drug therapy
CPT/HCPCS: 36415; 71045; 80048; 80053; 85025; 87581; 87633; 87798; 99284; G0378

== ENCOUNTER → 2020-01-06 10:47 | Outpatient (CLI) | payer MEDICARE, MEDICAID, SELFPAY ==
[2020-01-06 10:46] VITALS: BMI 30.8
[2020-01-06 11:37] LABS: Basophils % 0.7 % (0.1-2.0); Eosinophils # 0.1 K/mm3 (0.0-0.4); Eosinophils % 1.9 % (0.1-12.0); Hematocrit 29.5 % (37.0-47.0); Hemoglobin 9.5 g/dL (12.2-16.2); Lymphocytes # 1.4 K/mm3 (0.7-4.5); Lymphocytes % 31.3 % (10-50); Mean Corpuscular Hemoglobin 33.3 pg (27.0-31.2); Mean Platelet Volume 11.3 fl (7.4-10.4); Monocytes # 0.3 K/mm3 (0.1-1.0); Monocytes % 6.6 % (1.7-9.3); Neutrophils # 2.6 K/mm3 (1.8-7.8); Neutrophils % 59.5 % (37.0-80.0); Platelet Count 92 K/mm3 (142-424); Red Blood Count 2.84 M/mm3 (4.20-5.40); Red Cell Distribution Width 21.9 % (11.5-17.5); White Blood Count 4.4 K/mm3 (4.8-10.8)
[2020-01-06 11:59] LABS: Alanine Aminotransferase 15 U/L (12-78); Albumin Level 3.5 g/dl (3.5-5.0); Albumin/Globulin Ratio 1.1 (1.1-1.8); Alkaline Phosphatase 89 U/L (38-126); Aspartate Amino Transferase 27 U/L (14-36); Bilirubin,Total 0.4 mg/dl (0.2-1.3); Blood Urea Nitrogen 23 mg/dl (7-17); Calcium 8.6 mg/dl (8.4-10.2); Chloride 97 mmol/L (98-107); Creatinine Clearance Estimated 63 mL/min (50-200); Estimated Glomerular Filt Rate 95 ml/min (>60); GFR (African American) 115 ML/MIN (>60); Globulin 3.2 g/dL (1.3-3.2); Glucose 107 mg/dl (74-100); Potassium 4.6 mmoL/L (3.5-5.1); Sodium 142 mmol/L (136-145); Total Protein,Serum 6.7 g/dl (6.3-8.2)
[2020-01-06 12:01] LABS: Iron 85 ug/dL (37-170)
[2020-01-06 12:10] LABS: Anion Gap 11.6 mEq/L (5-15); Total Iron Binding Capacity 218 ug/dL (265-497)
[2020-01-06 13:06] LABS: Vitamin B12 700 pg/mL
[2020-01-06 13:33] LABS: Ferritin 1310 ng/ml (11.1-264)
[2020-01-06 13:34] LABS: Folate > 20.00 ng/mL
[2020-01-06 13:42] LABS: Carbon Dioxide 38 mmol/L (22.0-30.0)
[2020-01-07 10:26] LABS: Haptoglobin 162 mg/dL (41-333)
[2020-01-07 16:36] LABS: Free Kappa Lt Chains 83.3 mg/L (3.3-19.4); Free Lambda Lt Chains 54.4 mg/L (5.7-26.3)
[2020-01-07 20:21] LABS: Albumin 3.2 g/dL (2.9-4.4); Alpha-1-Globulin 0.3 g/dL (0.0-0.4); Alpha-2-Globulin 0.8 g/dL (0.4-1.0); Gamma Globulin 1.3 g/dL (0.4-1.8); Protein, Total 6.4 g/dL (6.0-8.5)
[2020-01-08 11:35] LABS: Peripheral Smear Review Scanned Result
== END ==
PROVIDERS: PCP Internal Medicine Adolescent Medicine; Visit Provider Internal Medicine Medical Oncology
DX: D69.6 Thrombocytopenia, unspecified (principal); D64.9 Anemia, unspecified
CPT/HCPCS: 36415; 80053; 82607; 82728; 82746; 83010; 83540; 83550; 83883; 84155; 84165; 85025

== ENCOUNTER → 2020-07-17 07:45 | Outpatient (CLI) | payer MEDICARE, MEDICAID, SELFPAY ==
[2020-07-17 13:55] LABS: Chloride 95 mmol/L (98-107); Potassium 4.1 mmoL/L (3.5-5.1); Sodium 140 mmol/L (136-145)
[2020-07-17 13:58] LABS: Blood Urea Nitrogen 19 mg/dl (7-17); Calcium 8.9 mg/dl (8.4-10.2); Estimated Glomerular Filt Rate 80 ml/min (>60); GFR (African American) 96 ML/MIN (>60); Glucose 89 mg/dl (74-100)
[2020-07-17 14:04] LABS: C-Reactive Protein 32.7 mg/L (0-4)
[2020-07-17 14:25] LABS: Basophils # 0.4 K/mm3 (0-0.2); Basophils % 4.1 % (0.1-2.0); Eosinophils # 0.2 K/mm3 (0.0-0.4); Hematocrit 30.8 % (37.0-47.0); Hemoglobin 9.2 g/dL (12.2-16.2); Lymphocytes # 2.3 K/mm3 (0.7-4.5); Lymphocytes % 25.3 % (10-50); Mean Corpuscular HGB Conc 29.7 g/dL (31.8-35.4); Mean Corpuscular Volume 104.4 fl (81-99); Mean Platelet Volume 12.2 fl (7.4-10.4); Monocytes % 10.9 % (1.7-9.3); Neutrophils # 5.2 K/mm3 (1.8-7.8); Neutrophils % 57.7 % (37.0-80.0); Platelet Count 120 K/mm3 (142-424); Red Blood Count 2.95 M/mm3 (4.20-5.40); Red Cell Distribution Width 24.1 % (11.5-17.5)
[2020-07-17 14:38] LABS: Anion Gap 9.1 mEq/L (5-15); Carbon Dioxide 40 mmol/L (22.0-30.0)
== END ==
PROVIDERS: Visit Provider Internal Medicine Adolescent Medicine
DX: D64.9 Anemia, unspecified (principal)
CPT/HCPCS: 36415; 80048; 85025; 86140

== ENCOUNTER → 2020-07-20 08:34 | Outpatient (CLI) | payer MEDICARE, MEDICAID, SELFPAY ==
[2020-07-20 14:50] LABS: Anion Gap 7.2 mEq/L (5-15); Blood Urea Nitrogen 22 mg/dl (7-17); Calcium 8.3 mg/dl (8.4-10.2); Carbon Dioxide 39 mmol/L (22.0-30.0); Chloride 97 mmol/L (98-107); Estimated Glomerular Filt Rate 80 ml/min (>60); GFR (African American) 96 ML/MIN (>60); Glucose 82 mg/dl (74-100); Potassium 4.2 mmoL/L (3.5-5.1); Sodium 139 mmol/L (136-145)
== END ==
PROVIDERS: Visit Provider Internal Medicine Adolescent Medicine
DX: D64.9 Anemia, unspecified (principal)
CPT/HCPCS: 36415; 80048

== ENCOUNTER → 2020-07-31 08:13 | Outpatient (CLI) | payer MEDICARE, MEDICAID, SELFPAY ==
[2020-07-31 14:24] LABS: Chloride 99 mmol/L (98-107); Potassium 4.2 mmoL/L (3.5-5.1); Sodium 141 mmol/L (136-145)
[2020-07-31 14:27] LABS: Calcium 8.3 mg/dl (8.4-10.2); Glucose 76 mg/dl (74-100)
[2020-07-31 14:34] LABS: Anion Gap 8.2 mEq/L (5-15); Carbon Dioxide 38 mmol/L (22.0-30.0)
[2020-07-31 14:44] LABS: Alanine Aminotransferase 9 U/L (12-78); Alkaline Phosphatase 79 U/L (38-126); Aspartate Amino Transferase 29 U/L (14-36); Basophils # 0.1 K/mm3 (0-0.2); Basophils % 1.8 % (0.1-2.0); Bilirubin,Total 0.5 mg/dl (0.2-1.3); Blood Urea Nitrogen 17 mg/dl (7-17); Eosinophils # 0.1 K/mm3 (0.0-0.4); Eosinophils % 1.6 % (0.1-12.0); Estimated Glomerular Filt Rate 117 ml/min (>60); GFR (African American) 142 ML/MIN (>60); Hematocrit 29.7 % (37.0-47.0); Lymphocytes # 1.6 K/mm3 (0.7-4.5); Lymphocytes % 33.6 % (10-50); Mean Corpuscular HGB Conc 30.4 g/dL (31.8-35.4); Mean Corpuscular Hemoglobin 31.9 pg (27.0-31.2); Mean Corpuscular Volume 105.1 fl (81-99); Mean Platelet Volume 12.1 fl (7.4-10.4); Monocytes # 0.3 K/mm3 (0.1-1.0); Monocytes % 7.1 % (1.7-9.3); Neutrophils # 2.6 K/mm3 (1.8-7.8); Neutrophils % 55.8 % (37.0-80.0); Platelet Count 70 K/mm3 (142-424); Red Blood Count 2.83 M/mm3 (4.20-5.40); Red Cell Distribution Width 23.7 % (11.5-17.5); White Blood Count 4.6 K/mm3 (4.8-10.8)
[2020-07-31 14:45] LABS: Albumin/Globulin Ratio 0.9 (1.1-1.8); Globulin 3.2 g/dL (1.3-3.2); Total Protein,Serum 6.2 g/dl (6.3-8.2)
[2020-08-04 14:00] LABS: Levetiracetam (Keppra) 13.8 ug/mL (10.0-40.0)
== END ==
PROVIDERS: Visit Provider Internal Medicine Adolescent Medicine
DX: D64.9 Anemia, unspecified (principal)
CPT/HCPCS: 36415; 80053; 80177; 85025

== ENCOUNTER → 2020-10-16 | Outpatient (CLI) | payer MEDICARE, MEDICAID, SELFPAY ==
[2020-10-16 07:16] LABS: Microscopic, Urine URINE MICROSCOPIC (MICROSCOPIC)
[2020-10-16 15:22] LABS: Appearance,Urine CLEAR (Clear); Bilirubin,Urine Negative (Negative); Blood, Urine TRACE-I (Negative); Color,Urine YELLOW (Yellow); Glucose,Urine (UA) Negative (Negative); Ketones,Urine Negative (Negative); Leukocyte Esterase,Urine TRACE (Negative); Nitrate,Urine POSITIVE (Negative); PH,Urine 7.5 (5.0-8.5); Protein,Urine TRACE (Negative)
[2020-10-16 15:41] LABS: Bacteria,Urine 2+ /lpf; WBC,Urine Occasional #/hpf (0-3)
== END ==
PROVIDERS: Visit Provider Nurse Practitioner Family
DX: R30.9 Painful micturition, unspecified (principal)
CPT/HCPCS: 81001; 87086; 87088; 87186

== ENCOUNTER → 2020-10-31 07:42 | Outpatient (CLI) | payer MEDICARE, MEDICAID, SELFPAY ==
[2020-10-31 13:59] LABS: Eosinophils # 0.1 K/mm3 (0.0-0.4); Eosinophils % 1.5 % (0.1-12.0); Hematocrit 26.4 % (37.0-47.0); Hemoglobin 8.5 g/dL (12.2-16.2); Lymphocytes # 1.5 K/mm3 (0.7-4.5); Lymphocytes % 31.7 % (10-50); Mean Corpuscular HGB Conc 32.2 g/dL (31.8-35.4); Mean Corpuscular Hemoglobin 32.3 pg (27.0-31.2); Mean Corpuscular Volume 100.4 fl (81-99); Mean Platelet Volume 11.8 fl (7.4-10.4); Monocytes # 0.4 K/mm3 (0.1-1.0); Neutrophils # 2.6 K/mm3 (1.8-7.8); Neutrophils % 56.8 % (37.0-80.0); Platelet Count 107 K/mm3 (142-424); Red Blood Count 2.63 M/mm3 (4.20-5.40); Red Cell Distribution Width 22.8 % (11.5-17.5); White Blood Count 4.6 K/mm3 (4.8-10.8)
[2020-10-31 16:31] LABS: Chloride 98 mmol/L (98-107); Sodium 141 mmol/L (136-145)
[2020-10-31 16:32] LABS: Potassium 3.4 mmoL/L (3.5-5.1)
[2020-10-31 16:34] LABS: Alanine Aminotransferase 8 U/L (12-78); Alkaline Phosphatase 85 U/L (38-126); Anion Gap 11.4 mEq/L (5-15); Aspartate Amino Transferase 26 U/L (14-36); Bilirubin,Total 0.5 mg/dl (0.2-1.3); Blood Urea Nitrogen 14 mg/dl (7-17); Carbon Dioxide 35 mmol/L (22.0-30.0); Estimated Glomerular Filt Rate 95 ml/min (>60); GFR (African American) 115 ML/MIN (>60)
[2020-10-31 16:35] LABS: Albumin Level 3.6 g/dl (3.5-5.0); Albumin/Globulin Ratio 1.1 (1.1-1.8); Globulin 3.2 g/dL (1.3-3.2); Glucose 98 mg/dl (74-100); Total Protein,Serum 6.8 g/dl (6.3-8.2)
[2020-11-03 18:15] LABS: Levetiracetam (Keppra) 24.3 ug/mL (10.0-40.0)
== END ==
PROVIDERS: Visit Provider Nurse Practitioner Family
DX: J44.9 Chronic obstructive pulmonary disease, unspecified (principal)
CPT/HCPCS: 36415; 80053; 80177; 85025

== ENCOUNTER 2020-11-18 14:20 | Emergency (ER) | payer MEDICARE, MEDICAID, SELFPAY ==
[2020-11-18] VITALS (8 sets, daily range): BP systolic 100–124; BP diastolic 46–82; PULSE 61–74; RESP 18–25; TEMP 36.6–36.7; O2SAT 98–100; BMI 37.8
--- NOTE | 2020-11-18 14:52 | XR_ITS ---
PROCEDURE INFORMATION: Exam: XR Chest Exam date and time: 11/18/2020 2:52 PM Age: 85 years old Clinical indication: Shortness of breath; Prior surgery; Surgery date: 6+ months; Patient HX: SOA, h/o lung cancer TECHNIQUE: Imaging protocol: XR of the chest. Views: 1 view. COMPARISON: CR XR CHEST PORTABLE 10/20/2019 11:14 PM FINDINGS: Lungs: Patchy airspace opacity noted within the right lung base consistent with infiltrative changes and or atelectasis. Pleural spaces: Right pleural effusion. Heart/Mediastinum: The heart demonstrates mild diffuse enlargement. Bones/joints: Rib changes are noted on the right. The thoracic spine demonstrates mild degenerative changes at multiple levels. Other findings: The patient's chin overlies the lung apices. IMPRESSION: 1. Patchy airspace opacity noted within the right lung base consistent with infiltrative changes and or atelectasis. 2. Right pleural effusion. 3. The heart demonstrates mild diffuse enlargement.
--- NOTE | 2020-11-18 14:54 | CT_ITS ---
PROCEDURE INFORMATION: Exam: CT Abdomen And Pelvis With Contrast Exam date and time: 11/18/2020 2:54 PM Age: 85 years old Clinical indication: Abdominal pain; Generalized; Patient HX: H/o lung cancer; Additional info: Abdominal pain, blood in stool TECHNIQUE: Imaging protocol: Computed tomography of the abdomen and pelvis with contrast. Radiation optimization: All CT scans at this facility use at least one of these dose optimization techniques: automated exposure control; mA and/or kV adjustment per patient size (includes targeted exams where dose is matched to clinical indication); or iterative reconstruction. Contrast material: ISOVUE; Contrast volume: 75 ml; Contrast route: IV; Other contrast: iv; COMPARISON: CR XR HIP RT 2-3V W/PELVIS 05/16/2019 11:51 PM FINDINGS: Pleural spaces: Right pleural effusion is present with atelectasis and/or infiltrative changes noted within the right lung base. Heart: The heart demonstrates mild diffuse enlargement. Liver: Multiple heterogeneous masses present throughout both lobes of the liver measuring up to 5.1 cm within the right lobe. Findings are most consistent with metastatic changes, however other etiologies are not excluded. Gallbladder and bile ducts: Sludge is noted within the gallbladder. Pancreas: Normal. No ductal dilation. Spleen: Normal. No splenomegaly. Adrenal glands: 1.9 cm right adrenal nodule present, likely an adenoma. Mild thickening of the left adrenal gland. Kidneys and ureters: Normal. No hydronephrosis. Stomach and bowel: Mild thickening of the jones of the rectosigmoid colon consistent with mild colitis. Appendix: Appendix is not seen. Intraperitoneal space: Normal. No significant fluid collection. Vasculature: There is moderate atherosclerotic calcification of the coronary arteries. The vasculature demonstrates diffuse mild atherosclerotic calcification. Lymph nodes: Unremarkable. No enlarged lymph nodes. Urinary bladder: There is mild bladder wall thickening consistent with incomplete distension, chronic outflow obstruction, or cystitis. Reproductive: Unremarkable as visualized. Bones/joints: The lumbar spine demonstrates mild degenerative changes at multiple levels. Soft tissues: Bilateral fat filled inguinal hernias. IMPRESSION: 1. Right pleural effusion is present with atelectasis and/or infiltrative changes noted within the right lung base. 2. Multiple heterogeneous masses present throughout both lobes of the liver measuring up to 5.1 cm within the right lobe. Findings are most consistent with metastatic changes, however other etiologies are not excluded. 3. Sludge is noted within the gallbladder. 4. 1.9 cm right adrenal nodule present, likely an adenoma. 5. Mild thickening of the left adrenal gland. 6. Mild thickening of the jones of the rectosigmoid colon consistent with mild colitis.
--- NOTE | 2020-11-18 14:58 | HMH.EDGENADL ---
ED Disposition Clinical Impression: Blood in diaper Hematuria Qualifiers: Hematuria type: unspecified type Qualified Code(s): R31.9 - Hematuria, unspecified Disposition: Home, Self-Care Condition on Discharge: Good Additional Instructions: Flagyl as prescribed. Call Dr. Yun for further concerns. Prescriptions: metroNIDAZOLE [Flagyl 500mg Tablet] 500 mg PO TID #21 tab Prescription Printed Referrals: Catracho Yun MD [Primary Care Provider] - - Critical Care Critical Care Time: No Attestation: On 11/18/20, the high probability of a clinically significant, sudden or life threatening deterioration of the following system(s) required my full and direct attention, intervention and personal management. The time I documented below is in addition to time spent performing reported procedures but includes the following listed in this critical care notation. Medical Decision Making - Esdras Inquiry Pt receiving controlled substance: No Vital Signs: 11/18/20 14:21 11/18/20 14:56 11/18/20 15:00 Temperature 98.1 F Temperature Source Oral Pulse Rate 72 67 Pulse Rate [Right] 71 Respiratory Rate 18 23 Blood Pressure 103/58 L 103/46 L Blood Pressure [Right Arm] 100/72 L Blood Pressure Mean [Right Arm] 81 Blood Pressure Source Automatic Cuff Blood Pressure Position Sitting 02 Sat by Pulse Oximetry 100 100 100 Oxygen Delivery Method Nasal Cannula Room Air Oxygen Flow Rate (LPM) 2 11/18/20 15:12 11/18/20 15:31 11/18/20 16:15 Temperature Temperature Source Pulse Rate 74 67 62 Pulse Rate [Right] Respiratory Rate 25 H 21 23 Blood Pressure 113/82 124/55 L 119/59 L Blood Pressure [Right Arm] Blood Pressure Mean [Right Arm] Blood Pressure Source Blood Pressure Position 02 Sat by Pulse Oximetry 100 100 100 Oxygen Delivery Method Oxygen Flow Rate (LPM) 11/18/20 16:31 Temperature Temperature Source Pulse Rate 61 Pulse Rate [Right] Respiratory Rate 22 Blood Pressure 117/61 Blood Pressure [Right Arm] Blood Pressure Mean [Right Arm] Blood Pressure Source Blood Pressure Position 02 Sat by Pulse Oximetry 100 Oxygen Delivery Method Oxygen Flow Rate (LPM) - Lab Data Lab Results 11/18/20 14:30: WBC 5.4, RBC 2.97 L, Hgb 9.3 L, Hct 29.4 L, MCV 99.0, MCH 31.4 H, MCHC 31.7 L, RDW 22.6 H, Plt Count 138 L, MPV 10.7 H, Neut % (Auto) 58.4, Lymph % (Auto) 29.1, [place] % (Auto) 7.1, Eos % (Auto) 1.9, Baso % (Auto) 3.5 H, Neut # (Auto) 3.2, Lymph # (Auto) 1.6, [place] # (Auto) 0.4, Eos # (Auto) 0.1, Baso # (Auto) 0.2 11/18/20 14:30: Sodium 140, Potassium 4.1, Chloride 96 L, Carbon Dioxide 37 H, Anion Gap 11.1, BUN 19 H, Creatinine 0.60, Estimated Creat Clear 65, Estimated GFR 95, Est GFR ( Amer) 115, Glucose 98, Calcium 8.6, Total Bilirubin 0.6, AST 41 H, ALT 11 L, Alkaline Phosphatase 102, Troponin I < 0.01, Total Protein 7.6, Albumin 3.9, Globulin 3.7 H, Albumin/Globulin Ratio 1.1 11/18/20 14:30: Lipase 71 11/18/20 15:10: Stool Occult Blood Positive A 11/18/20 15:20: Urine Color Yellow, Urine Appearance Clear, Urine pH 6.0, Ur Specific [place] 1.015, Urine Protein Negative, Urine Glucose (UA) Negative, Urine Ketones Negative, Urine Blood 3+, Urine Nitrate Negative, Urine Bilirubin Negative, Urine Urobilinogen 0.2, Ur Leukocyte Esterase Trace, Urine RBC 50-100, Urine WBC None, Ur Squamous Epith Cells 5-10, Amorphous Sediment 1+, Urine Bacteria None Result diagrams: 11/18/20 14:30 11/18/20 14:30 Orders (Tests/Meds): ED MEDICATIONS Generic Name Dose Route Start Last Admin Trade Name Freq PRN Reason Stop Dose Admin Sodium Chloride 10 ml 11/18/20 15:58 11/18/20 15:58 Sodium Chloride 0.9% 10ml Syr (Rad Only) IV 12/18/20 15:57 10 ml NEEDED PRN Administration Maintain IV Site Discontinued Medications Generic Name Dose Route Start Last Admin Trade Name Freq PRN Reason Stop Dose Admin Iopamidol 75 ml 11/18/20 15:58 11/18/20
[2020-11-18 15:15] LABS: Chloride 96 mmol/L (98-107); Potassium 4.1 mmoL/L (3.5-5.1); Sodium 140 mmol/L (136-145)
[2020-11-18 15:16] LABS: Basophils # 0.2 K/mm3 (0-0.2); Basophils % 3.5 % (0.1-2.0); Eosinophils # 0.1 K/mm3 (0.0-0.4); Eosinophils % 1.9 % (0.1-12.0); Hematocrit 29.4 % (37.0-47.0); Hemoglobin 9.3 g/dL (12.2-16.2); Lymphocytes # 1.6 K/mm3 (0.7-4.5); Lymphocytes % 29.1 % (10-50); Mean Corpuscular HGB Conc 31.7 g/dL (31.8-35.4); Mean Corpuscular Hemoglobin 31.4 pg (27.0-31.2); Mean Platelet Volume 10.7 fl (7.4-10.4); Monocytes # 0.4 K/mm3 (0.1-1.0); Monocytes % 7.1 % (1.7-9.3); Neutrophils # 3.2 K/mm3 (1.8-7.8); Neutrophils % 58.4 % (37.0-80.0); Platelet Count 138 K/mm3 (142-424); Red Blood Count 2.97 M/mm3 (4.20-5.40); Red Cell Distribution Width 22.6 % (11.5-17.5); White Blood Count 5.4 K/mm3 (4.8-10.8)
[2020-11-18 15:18] LABS: Alanine Aminotransferase 11 U/L (12-78); Albumin Level 3.9 g/dl (3.5-5.0); Albumin/Globulin Ratio 1.1 (1.1-1.8); Alkaline Phosphatase 102 U/L (38-126); Aspartate Amino Transferase 41 U/L (14-36); Bilirubin,Total 0.6 mg/dl (0.2-1.3); Blood Urea Nitrogen 19 mg/dl (7-17); Creatinine Clearance Estimated 65 mL/min (50-200); Estimated Glomerular Filt Rate 95 ml/min (>60); GFR (African American) 115 ML/MIN (>60); Globulin 3.7 g/dL (1.3-3.2); Total Protein,Serum 7.6 g/dl (6.3-8.2)
[2020-11-18 15:19] LABS: Occult Blood,Stool Positive (Negative)
[2020-11-18 15:19] LABS: Calcium 8.6 mg/dl (8.4-10.2); Glucose 98 mg/dl (74-100); Lipase 71 U/L (23-300)
[2020-11-18 15:25] LABS: Anion Gap 11.1 mEq/L (5-15)
[2020-11-18 15:25] LABS: Microscopic, Urine URINE MICROSCOPIC (MICROSCOPIC)
[2020-11-18 15:26] LABS: Carbon Dioxide 37 mmol/L (22.0-30.0)
[2020-11-18 15:27] LABS: Appearance,Urine CLEAR (Clear); Bilirubin,Urine Negative (Negative); Blood, Urine 3+ (Negative); Color,Urine YELLOW (Yellow); Glucose,Urine (UA) Negative (Negative); Ketones,Urine Negative (Negative); Leukocyte Esterase,Urine TRACE (Negative); Nitrate,Urine Negative (Negative); Protein,Urine Negative (Negative); Specific Gravity, Urine 1.015 (1.005-1.030); Urobilinogen,Urine 0.2 EU/dl (0.2)
--- NOTE | 2020-11-18 15:30 | ECG_ITS ---
APPROVED REPORT Exam: Resting ECG HR:66 bpm ECG Measurements Heart Rate 66 AXES QRSd 88 QRS 4 QT 412 T 55 QTc 431 Conclusion Atrial fibrillation Abnormal ECG Electronically signed by : Catracho Yun, 11/22/2020 21:45:38
[2020-11-18 15:32] LABS: Troponin I < 0.01 ng/ml (0.00-0.034)
[2020-11-18 15:32] LABS: Amorphous Sediment,Urine 1+ /lpf; RBC,Urine 50-100 #/hpf (0-3)
--- NOTE | 2020-11-18 15:45 | PC.NURSE ---
pt to CT scanner via stretcher at this time.
--- NOTE | 2020-11-18 15:52 | PC.NURSE ---
pt with rad
--- NOTE | 2020-11-18 17:34 | PC.NURSE ---
Dr Jama martínez.
--- NOTE | 2020-11-18 18:13 | PC.NURSE ---
Report given to Dayan at [email or web address].
== END 2020-11-18 19:33 | disposition home or self-care (01) ==
PROVIDERS: Emergency Provider Emergency Medicine; PCP Internal Medicine Adolescent Medicine
DX: K92.2 Gastrointestinal hemorrhage, unspecified (principal); I48.0 Paroxysmal atrial fibrillation; J44.9 Chronic obstructive pulmonary disease, unspecified; Z86.73 Personal history of transient ischemic attack (TIA), and cerebral infarction without residual deficits; I10 Essential (primary) hypertension; R16.0 Hepatomegaly, not elsewhere classified
CPT/HCPCS: 71045; 74177; 80053; 81001; 82272; 83690; 84484; 85025; 87086; 93005; 96374; 99283; 99284; G0328; Q9967

== ENCOUNTER → 2020-11-22 17:24 | Outpatient (CLI) | payer MEDICARE, MEDICAID, SELFPAY ==
[2020-11-22 17:34] LABS: Adenovirus F 40/41, stool Not Detected (NotDetected); Astrovirus Not Detected (NotDetected); Campylobacter Not Detected (NotDetected); Clostridium Difficile A/B, PCR Not Detected (NotDetected); Cryptosporidium Not Detected (NotDetected); Cyclospora Cayetanesis Not Detected (NotDetected); Entamoeba histolytica Not Detected (NotDetected); Enteroaggregative E coli Not Detected (NotDetected); Enteropathogenic E coli Not Detected (NotDetected); Enterotoxigenic E coli Not Detected (NotDetected); Giardia lamblia Not Detected (NotDetected); Norovirus Not Detected (NotDetected); Plesimonas Shigalloides, PCR Not Detected (NotDetected); Rotavirus A Not Detected (NotDetected); Salmonella, PCR Not Detected (NotDetected); Sapovirus Not Detected (NotDetected); Shiga-like toxin E coli Not Detected (NotDetected); Shigella Enterovasive E coli Not Detected (NotDetected); Vibrio Cholerae Not Detected (NotDetected); Vibrio, PCR Not Detected (NotDetected); Yersinia Entercolitica, PCR Not Detected (NotDetected)
== END ==
PROVIDERS: Visit Provider Nurse Practitioner Family
DX: R19.7 Diarrhea, unspecified (principal)
CPT/HCPCS: 87506

== ENCOUNTER → 2020-11-27 16:02 | Outpatient (CLI) | payer MEDICARE, MEDICAID, SELFPAY ==
[2020-11-30 18:21] LABS: Levetiracetam (Keppra) 32.5 ug/mL (10.0-40.0)
== END ==
PROVIDERS: Visit Provider Nurse Practitioner Family
DX: Z51.81 Encounter for therapeutic drug level monitoring (principal)
CPT/HCPCS: 80177

== ENCOUNTER → 2020-11-30 07:27 | Outpatient (CLI) | payer MEDICARE, MEDICAID, SELFPAY ==
[2020-11-30 13:54] LABS: Basophils # 0.1 K/mm3 (0-0.2); Basophils % 1.3 % (0.1-2.0); Eosinophils # 0.1 K/mm3 (0.0-0.4); Eosinophils % 1.8 % (0.1-12.0); Hematocrit 27.2 % (37.0-47.0); Hemoglobin 8.5 g/dL (12.2-16.2); Lymphocytes # 1.8 K/mm3 (0.7-4.5); Lymphocytes % 29.9 % (10-50); Mean Corpuscular HGB Conc 31.3 g/dL (31.8-35.4); Mean Corpuscular Hemoglobin 31.3 pg (27.0-31.2); Mean Platelet Volume 12.4 fl (7.4-10.4); Monocytes # 0.5 K/mm3 (0.1-1.0); Monocytes % 8.5 % (1.7-9.3); Neutrophils # 3.6 K/mm3 (1.8-7.8); Neutrophils % 58.5 % (37.0-80.0); Platelet Count 122 K/mm3 (142-424); Red Blood Count 2.72 M/mm3 (4.20-5.40); Red Cell Distribution Width 22.8 % (11.5-17.5); White Blood Count 6.1 K/mm3 (4.8-10.8)
== END ==
PROVIDERS: Visit Provider Nurse Practitioner Family
DX: I10 Essential (primary) hypertension (principal)
CPT/HCPCS: 36415; 85025

== ENCOUNTER 2021-01-10 15:37 | Emergency (ER) | payer MEDICARE, MEDICAID, SELFPAY ==
[2021-01-10 15:37] VITALS: BP 115/73; PULSE 73; RESP 22; TEMP 36.9; O2SAT 99; BMI 42.9
--- NOTE | 2021-01-10 16:10 | XR_ITS ---
PROCEDURE INFORMATION: Exam: XR Chest Exam date and time: 01/10/2021 4:10 PM Age: 85 years old Clinical indication: Shortness of breath; Patient HX: SOB TECHNIQUE: Imaging protocol: XR of the chest. Views: 1 view. COMPARISON: CR XR CHEST PORTABLE 11/18/2020 4:06 PM FINDINGS: Airway: Patent Lungs: Ground-glass opacifications in the right lung base. Remainder of the lungs are clear. Pleural spaces: There is blunting of the right costophrenic angle. Left costophrenic angle is clear. Heart/Mediastinum: The heart is moderately enlarged. Bones/joints: No acute skeletal abnormality or aggressive osseous lesion. IMPRESSION: 1. Concern for a small right pleural effusion with associated compressive atelectasis. 2. No other acute thoracic pathology noted.
[2021-01-10 16:31] VITALS: BP 126/84; PULSE 67; O2SAT 99
--- NOTE | 2021-01-10 16:45 | PC.NURSE ---
Lab coming to stick pt for blood
--- NOTE | 2021-01-10 19:13 | HMH.EDGENADL ---
ED Disposition Clinical Impression: Pneumonia Qualifiers: Pneumonia type: due to unspecified organism Laterality: left Lung location: lower lobe of lung Qualified Code(s): J18.9 - Pneumonia, unspecified organism Disposition: Xfer SNF Condition on Discharge: Good Instructions: DI for Seizure (Not Epilepsy/Seizure Disorder), DI for Seizure Disorder -- Adult, DI for Seizure Disorder -- Child Prescriptions: Azithromycin [Azithromycin 500mg Tab] 250 mg PO DAILY #3 tab Prescription Printed Cefdinir [Omnicef 300mg Capsule] 300 mg PO BID #10 cap Prescription Printed Referrals: Catracho Yun MD [Primary Care Provider] - - Critical Care Critical Care Time: No Attestation: On 01/10/21, the high probability of a clinically significant, sudden or life threatening deterioration of the following system(s) required my full and direct attention, intervention and personal management. The time I documented below is in addition to time spent performing reported procedures but includes the following listed in this critical care notation. Medical Decision Making - Medical Records Medical records reviewed: Yes: I reviewed the patient's medical records. - Esdras Inquiry Pt receiving controlled substance: No Vital Signs: 01/10/21 15:37 01/10/21 16:31 Temperature 98.5 F Temperature Source Oral Pulse Rate 67 Pulse Rate [Left Radial] 73 Respiratory Rate 22 Blood Pressure 126/84 Blood Pressure [Right Arm] 115/73 Blood Pressure Mean 98 Blood Pressure Mean [Right Arm] 87 Blood Pressure Source [Right Arm] Automatic Cuff Blood Pressure Position [Right Arm] Sitting 02 Sat by Pulse Oximetry 99 99 Oxygen Delivery Method Nasal Cannula Oxygen Flow Rate (LPM) 2 Orders (Tests/Meds): ORDERS Category Date Time Status Complete Blood Count Auto Diff Stat Lab 01/10/21 16:57 Received Comprehensive Metabolic Panel Stat Lab 01/10/21 16:57 Received Trop I [Troponin I] Stat Lab 01/10/21 16:57 Received Troponin I Q3H Lab 01/10/21 19:15 Ordered Troponin I Q3H Lab 01/10/21 22:15 Ordered Medical Decision Narrative: 85-year-old female presents the ED today from long term with complaints of cough and shortness of breath. Patient has been otherwise well for last couple days but in the last 24 hours has developed a cough. Is otherwise well, no acute distress, on 3 L nasal cannula at home for comfort differential diagnosis includes pneumonia, atypical viral infection, pneumothorax, ACS. Plan to obtain CBC CMP troponin, chest x-ray, viral panel, however patient was stuck for labs initially and those labs were hemolyzed second set of labs also, patient is declining further lab evaluation. I discussed with the patient and without obtaining labs were unable to rule out if she is having a heart attack or not, although her EKG looks normal. Patient understands these risks, is able to repeat them back, and is deferring lab further evaluation at this time. Chest x-ray does show some left lower zone effusion and compression atelectasis which could be consistent with a pneumonia. Given patient's cough and symptoms we will treat with oral of azithromycin and cefdinir, and have sent the prescription via paper with patient to go back to her long term with. Patient is also declining nasal swab for coronavirus or viral testing. Have discussed with the patient that should she change her mind and want laboratory evaluation we will obtain this at any time, instructed that she feels worse and want her to inform her long term staff so that she can come back to the ED for further evaluation. General Adult HPI - General Chief complaint: Seizure Stated complaint: seizure Time Seen by Provider: 01/10/21 19:13 Mode of Arrival: EMS Limitations: Physical Limitations Description of Symptoms (Recalled from ER Triage Doc. by RN): per long term pt had a focal seizure with white frothy sputum once at the long term. PT c/o PENA and sarah
[2021-01-10 19:54] VITALS: BP 139/90; PULSE 75; RESP 20; TEMP 37; O2SAT 98
== END 2021-01-10 19:57 ==
PROVIDERS: Emergency Provider Student in an Organized Health Care Education/Training Program; PCP Internal Medicine Adolescent Medicine
DX: J18.9 Pneumonia, unspecified organism (principal); M25.511 Pain in right shoulder; I48.0 Paroxysmal atrial fibrillation; J44.9 Chronic obstructive pulmonary disease, unspecified; I10 Essential (primary) hypertension; Z86.73 Personal history of transient ischemic attack (TIA), and cerebral infarction without residual deficits; Z79.899 Other long term (current) drug therapy
CPT/HCPCS: 36415; 71045; 99283

== ENCOUNTER → 2021-01-29 06:54 | Outpatient (CLI) | payer MEDICARE, MEDICAID, SELFPAY ==
[2021-01-29 14:04] LABS: Basophils # 0.1 K/mm3 (0-0.2); Basophils % 1.1 % (0.1-2.0); Eosinophils # 0.1 K/mm3 (0.0-0.4); Eosinophils % 2.8 % (0.1-12.0); Hematocrit 29.8 % (37.0-47.0); Hemoglobin 9.2 g/dL (12.2-16.2); Lymphocytes # 1.7 K/mm3 (0.7-4.5); Lymphocytes % 35.1 % (10-50); Mean Corpuscular HGB Conc 30.9 g/dL (31.8-35.4); Mean Corpuscular Hemoglobin 31.6 pg (27.0-31.2); Mean Corpuscular Volume 102.4 fl (81-99); Mean Platelet Volume 11.7 fl (7.4-10.4); Monocytes # 0.3 K/mm3 (0.1-1.0); Monocytes % 6.9 % (1.7-9.3); Neutrophils # 2.6 K/mm3 (1.8-7.8); Neutrophils % 54.2 % (37.0-80.0); Platelet Count 148 K/mm3 (142-424); Red Blood Count 2.91 M/mm3 (4.20-5.40); Red Cell Distribution Width 22.4 % (11.5-17.5); White Blood Count 4.9 K/mm3 (4.8-10.8)
[2021-01-29 14:12] LABS: Chloride 97 mmol/L (98-107); Sodium 139 mmol/L (136-145)
[2021-01-29 14:13] LABS: Potassium 3.9 mmoL/L (3.5-5.1)
[2021-01-29 14:15] LABS: Alanine Aminotransferase 12 U/L (12-78); Albumin Level 3.4 g/dl (3.5-5.0); Albumin/Globulin Ratio 1.2 (1.1-1.8); Alkaline Phosphatase 133 U/L (38-126); Anion Gap 11.9 mEq/L (5-15); Aspartate Amino Transferase 32 U/L (14-36); Bilirubin,Total 0.4 mg/dl (0.2-1.3); Blood Urea Nitrogen 21 mg/dl (7-17); Carbon Dioxide 34 mmol/L (22.0-30.0); Estimated Glomerular Filt Rate 68 ml/min (>60); GFR (African American) 82 ML/MIN (>60); Globulin 2.9 g/dL (1.3-3.2); Total Protein,Serum 6.3 g/dl (6.3-8.2)
[2021-01-29 14:16] LABS: Calcium 8.5 mg/dl (8.4-10.2); Glucose 112 mg/dl (74-100)
[2021-02-01 21:52] LABS: Levetiracetam (Keppra) 31.3 ug/mL (10.0-40.0)
== END ==
PROVIDERS: Visit Provider Nurse Practitioner Family
DX: G40.909 Epilepsy, unspecified, not intractable, without status epilepticus (principal); Z51.81 Encounter for therapeutic drug level monitoring
CPT/HCPCS: 36415; 80053; 80177; 85025

== ENCOUNTER → 2021-03-09 18:09 | Outpatient (CLI) | payer MEDICARE, MEDICAID, SELFPAY ==
[2021-03-09 18:36] LABS: Basophils # 0.2 K/mm3 (0-0.2); Basophils % 2.7 % (0.1-2.0); Eosinophils # 0.1 K/mm3 (0.0-0.4); Eosinophils % 1.7 % (0.1-12.0); Hematocrit 25.1 % (37.0-47.0); Hemoglobin 7.6 g/dL (12.2-16.2); Lymphocytes # 1.4 K/mm3 (0.7-4.5); Lymphocytes % 24.3 % (10-50); Mean Corpuscular HGB Conc 30.4 g/dL (31.8-35.4); Mean Corpuscular Hemoglobin 31.2 pg (27.0-31.2); Mean Corpuscular Volume 102.7 fl (81-99); Monocytes # 0.4 K/mm3 (0.1-1.0); Monocytes % 7.4 % (1.7-9.3); Neutrophils % 66.6 % (37.0-80.0); Platelet Count 148 K/mm3 (142-424); Red Blood Count 2.44 M/mm3 (4.20-5.40); Red Cell Distribution Width 23.7 % (11.5-17.5); White Blood Count 5.9 K/mm3 (4.8-10.8)
[2021-03-09 18:50] LABS: Alanine Aminotransferase 16 U/L (12-78); Albumin Level 3.2 g/dl (3.5-5.0); Alkaline Phosphatase 183 U/L (38-126); Aspartate Amino Transferase 42 U/L (14-36); Bilirubin,Total 0.3 mg/dl (0.2-1.3); Blood Urea Nitrogen 21 mg/dl (7-17); Calcium 8.4 mg/dl (8.4-10.2); Carbon Dioxide 38 mmol/L (22.0-30.0); Chloride 95 mmol/L (98-107); Estimated Glomerular Filt Rate 95 ml/min (>60); GFR (African American) 115 ML/MIN (>60); Globulin 3.1 g/dL (1.3-3.2); Glucose 111 mg/dl (74-100); Sodium 138 mmol/L (136-145); Total Protein,Serum 6.3 g/dl (6.3-8.2)
== END ==
PROVIDERS: Visit Provider Nurse Practitioner Family
DX: D64.9 Anemia, unspecified (principal)
CPT/HCPCS: 80053; 85025

== ENCOUNTER 2021-03-09 22:13 | Inpatient (IN) | payer MEDICARE, MEDICAID, SELFPAY ==
[2021-03-09 22:12] VITALS: BP 116/66; PULSE 61; RESP 16; TEMP 37.3; O2SAT 99; BMI 33.9
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
[2021-03-09 22:39] LABS: Basophils # 0.2 K/mm3 (0-0.2); Basophils % 2.3 % (0.1-2.0); Eosinophils # 0.1 K/mm3 (0.0-0.4); Lymphocytes # 1.6 K/mm3 (0.7-4.5); Lymphocytes % 24.4 % (10-50); Monocytes # 0.4 K/mm3 (0.1-1.0); Neutrophils # 4.3 K/mm3 (1.8-7.8); Red Cell Distribution Width 23.4 % (11.5-17.5)
[2021-03-09 22:46] LABS: Eosinophils % 1.8 % (0.1-12.0); Hemoglobin 7.6 g/dL (12.2-16.2); Mean Corpuscular HGB Conc 30.6 g/dL (31.8-35.4); Mean Corpuscular Hemoglobin 31.3 pg (27.0-31.2); Mean Corpuscular Volume 102.5 fl (81-99); Monocytes % 6.5 % (1.7-9.3); Platelet Count 131 K/mm3 (142-424); Red Blood Count 2.44 M/mm3 (4.20-5.40); White Blood Count 6.6 K/mm3 (4.8-10.8)
[2021-03-09 22:47] LABS: Occult Blood,Stool Negative (Negative)
[2021-03-09 22:54] LABS: Alanine Aminotransferase 16 U/L (12-78); Albumin Level 3.5 g/dl (3.5-5.0); Albumin/Globulin Ratio 0.9 (1.1-1.8); Alkaline Phosphatase 181 U/L (38-126); Anion Gap 8.7 mEq/L (5-15); Aspartate Amino Transferase 46 U/L (14-36); Bilirubin,Total 0.4 mg/dl (0.2-1.3); Blood Urea Nitrogen 20 mg/dl (7-17); Calcium 8.8 mg/dl (8.4-10.2); Carbon Dioxide 40 mmol/L (22.0-30.0); Chloride 94 mmol/L (98-107); Creatinine Clearance Estimated 61 mL/min (50-200); Estimated Glomerular Filt Rate 95 ml/min (>60); GFR (African American) 115 ML/MIN (>60); Globulin 3.7 g/dL (1.3-3.2); Glucose 106 mg/dl (74-100); Potassium 3.7 mmoL/L (3.5-5.1); Sodium 139 mmol/L (136-145); Total Protein,Serum 7.2 g/dl (6.3-8.2)
[2021-03-09 22:59] LABS: C-Reactive Protein 71.6 mg/L (0-4)
--- NOTE | 2021-03-09 23:03 | HMH.EDGIBL ---
ED Disposition Clinical Impression: Colon cancer metastasized to liver, Pleural effusion, Obesity (BMI 30-39.9), Ovarian cyst, left Anemia Qualifiers: Anemia type: unspecified type Qualified Code(s): D64.9 - Anemia, unspecified Disposition: Admitted as Observation Condition on Discharge: Serious - Critical Care Critical Care Time: No Attestation: On 03/09/21, the high probability of a clinically significant, sudden or life threatening deterioration of the following system(s) required my full and direct attention, intervention and personal management. The time I documented below is in addition to time spent performing reported procedures but includes the following listed in this critical care notation. Medical Decision Making - Medical Records Medical records reviewed: Yes: I reviewed the patient's medical records. - Esdras Inquiry Pt receiving controlled substance: No Vital Signs: 03/09/21 22:12 Temperature 99.1 F Temperature Source Rectal Pulse Rate [Right] 61 Respiratory Rate 16 Blood Pressure [Right Arm] 116/66 Blood Pressure Mean [Right Arm] 82 02 Sat by Pulse Oximetry 99 Oxygen Delivery Method Nasal Cannula Oxygen Flow Rate (LPM) 3 - Lab Data Lab results reviewed: Yes: I reviewed the patient's lab results. Lab Results 03/09/21 22:32: Stool Occult Blood Negative 03/09/21 22:32: WBC 6.6, RBC 2.44 L, Hgb 7.6 L, Hct 25.0 L, MCV 102.5 H, MCH 31.3 H, MCHC 30.6 L, RDW 23.4 H, Plt Count 131 L, MPV 12.0 H, Neut % (Auto) 65.0, Lymph % (Auto) 24.4, [place] % (Auto) 6.5, Eos % (Auto) 1.8, Baso % (Auto) 2.3 H, Neut # (Auto) 4.3, Lymph # (Auto) 1.6, [place] # (Auto) 0.4, Eos # (Auto) 0.1, Baso # (Auto) 0.2, ESR > 140 H 03/09/21 22:32: Sodium 139, Potassium 3.7, Chloride 94 L, Carbon Dioxide 40 H, Anion Gap 8.7, BUN 20 H, Creatinine 0.60, Estimated Creat Clear 61, Estimated GFR 95, Est GFR ( Amer) 115, Glucose 106 H, Calcium 8.8, Total Bilirubin 0.4, AST 46 H, ALT 16, Alkaline Phosphatase 181 H, C-Reactive Protein 71.6 H, Total Protein 7.2, Albumin 3.5, Globulin 3.7 H, Albumin/Globulin Ratio 0.9 L, Procalcitonin 0.407 03/09/21 22:32: Troponin I < 0.01 03/09/21 23:32: SARS-CoV-2 (PCR) Not detected, Influenza A Untype (PCR) Not detected, Influenza Type B (PCR) Not detected 03/09/21 23:34: Lactate 0.7 Result diagrams: 03/09/21 22:32 03/09/21 22:32 Orders (Tests/Meds): ED MEDICATIONS Generic Name Dose Route Start Last Admin Trade Name Freq PRN Reason Stop Dose Admin Sodium Chloride 1,000 mls @ 999 mls/hr 03/09/21 22:45 03/09/21 22:45 Sod Chlor 0.9% 1000ml Bag IV 03/09/21 23:45 999 mls/hr .Q1H1M CHAD Administration Discontinued Medications Generic Name Dose Route Start Last Admin Trade Name Freq PRN Reason Stop Dose Admin Pantoprazole Sodium 80 mg/ 100 mls @ 100 mls/hr 03/09/21 22:31 03/09/21 22:44 Sodium Chloride IV 03/09/21 23:30 100 mls/hr ONCE ONE Administration Iopamidol 75 ml 03/09/21 23:20 03/09/21 23:22 Iopamidol-370 (76%);100ml Bottle IV 03/09/21 23:21 75 ml ONCE ONE Administration Sodium Chloride 10 ml 03/09/21 23:20 03/09/21 23:21 Sodium Chloride 0.9% 10ml Syr (Rad Only) IV 03/09/21 23:21 10 ml ONCE ONE Administration ORDERS Category Date Time Status Troponin I Q3H Lab 03/10/21 02:45 Ordered Troponin I Q3H Lab 03/10/21 05:45 Ordered Urinalysis and Microscopic Stat Lab 03/09/21 23:42 Stop Req Blood Culture Stat Micro 03/09/21 23:34 Received ABG [Arterial Blood Gas] Stat RT 03/09/21 23:31 Ordered - Radiology Data #1 Image(s): Chest Image Reviewed: Yes I have reviewed radiologist's interpretation Preliminary Findings: Abnormal - CT Data CT Scan: Abdomen, Pelvis Time Received: 00:[address] Reviewed: Yes: I have viewed the radiologist's interpretation Preliminary Findings: Abnormal (see report ) Medical Decision Narrative: has prob colon ca with mets and will admit and check lab in am and allow pcp to determine if an
--- NOTE | 2021-03-09 23:07 | XR_ITS ---
PROCEDURE INFORMATION: Exam: XR Chest Exam date and time: 03/09/21 11:07 PM Age: 86 years old Clinical indication: Cough and shortness of breath TECHNIQUE: Imaging protocol: XR of the chest. Views: 1 view. COMPARISON: CR XR CHEST PORTABLE 01/10/21 04:42 PM FINDINGS: Lungs: Opaque right hemithorax new from comparison. Pleural spaces: Unremarkable. No pleural effusion. No pneumothorax. Heart/Mediastinum: Unremarkable. No cardiomegaly. Bones/joints: Unremarkable. IMPRESSION: Opaque right hemithorax new from comparison.
[2021-03-09 23:10] LABS: Erythrocyte Sedimentation Rate > 140 mm/hr (0-30)
[2021-03-09 23:12] LABS: Procalcitonin 0.407 ng/mL (0.0-2.0)
--- NOTE | 2021-03-09 23:51 | PC.NURSE ---
Dr. Sen s/w vrad at this time.
[2021-03-09 23:57] LABS: Troponin I < 0.01 ng/ml (0.00-0.034)
[2021-03-09 23:57] LABS: Lactic Acid 0.7 mmol/L (0.7-2.1)
[2021-03-10] VITALS (26 sets, daily range): BP systolic 97–174; BP diastolic 56–99; PULSE 67–115; RESP 15–36; TEMP 36.3–37.1; O2SAT 90–100; BMI 37.8
[2021-03-10 00:10] LABS: Coronavirus 19, PCR Not Detected (NotDetected); Influenza A, PCR Not Detected (NotDetected); Influenza B, PCR Not Detected (NotDetected)
--- NOTE | 2021-03-10 00:13 | PC.NURSE ---
House notified on the need for bed assignment.
--- NOTE | 2021-03-10 01:21 | PC.NURSE ---
patient up to floor via stretcher @ this time
--- NOTE | 2021-03-10 05:25 | PC.NURSE ---
pt is alert to person and date, has some intermittent confusion, remains on 3L NC which is her baseline at NH, O2 sats 99-100%, right sided lung sounds are extremely diminished, pt did complain of SOA when arriving to floor and being transferred to the bed, but it has resolved, no complaints of SOA since then, incontinent of bladder this shift
[2021-03-10 06:10] LABS: Basophils # 0.1 K/mm3 (0-0.2); Basophils % 2.1 % (0.1-2.0); Eosinophils # 0.1 K/mm3 (0.0-0.4); Eosinophils % 1.3 % (0.1-12.0); Hematocrit 24.2 % (37.0-47.0); Hemoglobin 7.1 g/dL (12.2-16.2); Lymphocytes # 1.4 K/mm3 (0.7-4.5); Lymphocytes % 23.2 % (10-50); Mean Corpuscular HGB Conc 29.3 g/dL (31.8-35.4); Mean Corpuscular Hemoglobin 30.9 pg (27.0-31.2); Mean Corpuscular Volume 105.5 fl (81-99); Mean Platelet Volume 11.3 fl (7.4-10.4); Monocytes # 0.4 K/mm3 (0.1-1.0); Monocytes % 6.9 % (1.7-9.3); Neutrophils # 4.2 K/mm3 (1.8-7.8); Neutrophils % 66.6 % (37.0-80.0); Platelet Count 123 K/mm3 (142-424); Red Cell Distribution Width 23.4 % (11.5-17.5); White Blood Count 6.2 K/mm3 (4.8-10.8)
[2021-03-10 06:25] LABS: Chloride 98 mmol/L (98-107); Potassium 3.6 mmoL/L (3.5-5.1); Sodium 139 mmol/L (136-145)
[2021-03-10 06:28] LABS: Anion Gap 8.6 mEq/L (5-15); Blood Urea Nitrogen 15 mg/dl (7-17); Calcium 8.3 mg/dl (8.4-10.2); Carbon Dioxide 36 mmol/L (22.0-30.0); Creatinine Clearance Estimated 68 mL/min (50-200); Estimated Glomerular Filt Rate 117 ml/min (>60); GFR (African American) 142 ML/MIN (>60); Glucose 99 mg/dl (74-100)
--- NOTE | 2021-03-10 09:16 | HMH.HP ---
*Admission Date: 03/10/21 *Chief complaint: Shortness of air/GI bleeding/chest pain *History of present illness: 86-year-old white female with multiple medical problems including recurrent pneumonias, history of trach status now off trach, recurrent thrombocytopenia, recurrent chest pain with previously noted mild pleural effusion who was brought to the emergency department from the snf because of possible GI bleeding. In the emergency department work-up revealed slightly lower hemoglobin, other labs were stable, patient was alert, responded well to oxygen therapy, but CT scan of abdomen and pelvis revealed significant liver lesions that had progressed since her previous scans, including a lesion in the sigmoid colon most consistent with primary sigmoid cancer with liver metastases and pleural effusion most likely malignant. Admitted to floor for further evaluation. [facility] History I have reviewed the patient's past medical history: Yes Medical History: Reports:: Arrhythmia, Atrial Fibrillation, Cancer, Chronic Obstructive Pulmonary Disease (COPD), Cerebrovascular Accident, Hypertension, MRSA, Seizures, Transient Ischemic Attacks (TIA) Denies:: Diabetes Mellitus Type 1, Diabetes Mellitus Type 2, Internal Pacemaker *Have you ever received a pneumonia vaccine?: No *Have you received a flu vaccine this season?: Yes Other Medical History: Reports: Anemia Other Surgeries: Yes: Other. No: Pacemaker Amputation: No - *Social History Smoking Status: Unknown if ever smoked Tobacco Type: cigarettes Alcohol Intake: never *Occupational Status:: retired Housing: snf Household Members: other *Travel in the last 8 weeks: None Family Hx:: Unable to obtain Review of Systems - Review of Systems Review of systems:: pertinent systems reviewed and negative unless documented below Patient denies pain. Reports dyspnea, slightly worse than baseline. Reports no chest pain or palpitations. Reports no abdominal pain or urges to void. - *Neurologic Denies seizure-like activity Meds Home Medications Medication Instructions Recorded Confirmed Type Buspirone HCl [Buspar 10mg 10 mg PO TID 05/16/19 03/09/21 History tablet] Escitalopram Oxalate [Lexapro] 15 mg PO HS 05/16/19 03/09/21 History Furosemide [Lasix 20mg tablet] 20 mg PO DAILY 05/16/19 03/09/21 History Ipratropium/Albuterol Sulfate 3 ml IH Q6H 05/16/19 03/09/21 History [Duoneb 3mL neb] Multivitamin [Multivitamins] 1 each PO DAILY 05/16/19 03/09/21 History Sennosides/Docusate Sodium [Senna 1 each PO BID 05/16/19 03/09/21 History Plus Tablet] levETIRAcetam [Keppra Xr] 750 mg PO BID 06/17/19 03/09/21 History Metoprolol Tartrate [Lopressor 25 mg PO BID 10/21/19 03/09/21 History 25mg tablet] Tramadol HCl [Tramadol 50mg 100 mg PO Q8HP PRN 10/21/19 03/09/21 History Tab] omeprazole 40 mg capsule,delayed 20 mg PO BID 01/06/20 03/09/21 History release polyethylene glycol 3350 17 gram 17 g PO DAILY 01/06/20 03/09/21 History oral powder packet sulfamethoxazole 800 1 tab PO BID 01/06/20 03/09/21 History mg-trimethoprim 160 mg tablet acetaminophen 325 mg capsule 325 mg PO Q6H PRN cap 03/09/20 03/09/21 History calcium carb-vit D3-minerals 600 1 tab PO BID 03/09/20 03/09/21 History mg calcium-200 unit tablet Gabapentin [Gabapentin 100mg Cap] 100 mg PO BID 03/09/21 03/09/21 History Allergies Allergy/AdvReac Type Severity Reaction Status Date / Time levofloxacin [From Levaquin] Allergy Verified 03/09/20 14:11 Exam Vital signs and Labs for Last 24 Hours: Temp Pulse Resp BP Pulse Ox 97.8 F 70 22 144/68 H 100 03/10/21 04:00 03/10/21 04:00 03/10/21 04:00 03/10/21 04:00 03/10/21 04:00 Laboratory Results - last 24 hr 03/09/21 22:32: Stool Occult Blood Negative 03/09/21 22:32: WBC 6.6, RBC 2.44 L, Hgb 7.6 L, Hct 25.0 L, MCV 102.5 H, MCH 31.3 H, MCHC 30.6 L, RDW 23.4 H, Plt Count 131 L, MPV 12.0 H, Neut % (Auto) 65.0, Lym
--- NOTE | 2021-03-10 11:46 | P.CONPHA_ITS ---
[facility] Pharmacy VTE Monitoring - Patient Demographics Admission date: 03/10/21 Report Date: 03/10/21 Time: 11:46 Allergies/Adverse Reactions: Patient Allergies levofloxacin [From Levaquin] Allergy (Verified 03/09/20 14:11) Height: 1.68 m Weight: 106.764 kg Patient Problems: Current Active Problems Anemia (Acute) COPD (chronic obstructive pulmonary disease) (Chronic) Obesity (BMI 30-39.9) (Chronic) Colon cancer metastasized to liver (Acute) Pleural effusion (Acute) Ovarian cyst, left (Acute) - VTE Risk Labs: VTE Related Lab Results Hgb 7.1 g/dL (12.2-16.2) L 03/10/21 05:33 Hct 24.2 % (37.0-47.0) L 03/10/21 05:33 Plt Count 123 K/mm3 (142-424) L 03/10/21 05:33 BUN 15 mg/dl (7-17) 03/10/21 05:33 Creatinine 0.50 mg/dl (0.52-1.04) L 03/10/21 05:33 Estimated Creat Clear 68 mL/min (50-200) 03/10/21 05:33 Was VTE Risk Assessment Performed: Yes VTE Score: 12 VTE Risk Level: Moderate Risk - Prophylaxis Types of VTE Prophylaxis: TEDS Knee High (PAULETTE HOSE ORDERED)
--- NOTE | 2021-03-10 14:50 | PC.NURSE ---
Called lab concerning ETA of pt's PRBC's that were ordered per MD Yun. Antibody screen had to be send to [facility] and lab will call when blood arrives to [facility]
[2021-03-11] VITALS (9 sets, daily range): BP systolic 119–156; BP diastolic 60–88; PULSE 52–97; RESP 16–22; TEMP 36.6–37; O2SAT 95–99; BMI 37.8
[2021-03-11 01:20] LABS: Hematocrit 30.7 % (37.0-47.0)
[2021-03-11 01:22] LABS: Hemoglobin 9.6 g/dL (12.2-16.2)
[2021-03-11 06:17] LABS: Basophils # 0.2 K/mm3 (0-0.2); Basophils % 2.5 % (0.1-2.0); Eosinophils # 0.1 K/mm3 (0.0-0.4); Eosinophils % 2.2 % (0.1-12.0); Hematocrit 30.2 % (37.0-47.0); Hemoglobin 9.3 g/dL (12.2-16.2); Lymphocytes # 1.1 K/mm3 (0.7-4.5); Lymphocytes % 18.5 % (10-50); Mean Corpuscular HGB Conc 30.8 g/dL (31.8-35.4); Mean Corpuscular Hemoglobin 31.1 pg (27.0-31.2); Mean Corpuscular Volume 101.1 fl (81-99); Mean Platelet Volume 11.6 fl (7.4-10.4); Monocytes # 0.4 K/mm3 (0.1-1.0); Monocytes % 6.9 % (1.7-9.3); Neutrophils # 4.3 K/mm3 (1.8-7.8); Neutrophils % 69.9 % (37.0-80.0); Platelet Count 104 K/mm3 (142-424); Red Blood Count 2.99 M/mm3 (4.20-5.40); Red Cell Distribution Width 22.3 % (11.5-17.5); White Blood Count 6.2 K/mm3 (4.8-10.8)
[2021-03-11 06:19] LABS: Chloride 97 mmol/L (98-107); Potassium 3.8 mmoL/L (3.5-5.1); Sodium 140 mmol/L (136-145)
[2021-03-11 06:22] LABS: Blood Urea Nitrogen 12 mg/dl (7-17); Creatinine Clearance Estimated 68 mL/min (50-200); Estimated Glomerular Filt Rate 151 ml/min (>60); GFR (African American) 183 ML/MIN (>60)
[2021-03-11 06:23] LABS: Calcium 8.2 mg/dl (8.4-10.2); Glucose 102 mg/dl (74-100)
[2021-03-11 06:30] LABS: Anion Gap 6.8 mEq/L (5-15); Carbon Dioxide 40 mmol/L (22.0-30.0)
--- NOTE | 2021-03-11 08:55 | HMH.ACPN2 ---
Internal Medicine - PN: Subj *Date: 03/11/21 *Time: 08:55 Interval history: Ms. Alcala states she feels about the same. She ate her cereal this morning but does not wish to have any other breakfast, she does state that she still hungry and would like some more cereal. I went over her findings from her CT scan again and her chest x-rays with her again. I reiterated the likelihood that she has metastatic colon cancer and she understands this. She wishes me to discuss the case with her son and have her children aware of the situation before she makes ongoing decisions. Exam Vital signs and Labs for Last 24 Hours: Temp Pulse Resp BP Pulse Ox 97.9 F 77 22 123/60 96 03/11/21 08:00 03/11/21 08:00 03/11/21 08:00 03/11/21 08:00 03/11/21 08:00 Laboratory Results - last 24 hr 03/10/21 05:33: Blood Type A Negative, Antibody Screen Positive, Crossmatch (AHG) See Detail 03/10/21 05:33: Antibody Identification Anti-K 03/10/21 : Blood Type Confirm A Negative 03/11/21 01:10: Hgb 9.6 L D, Hct 30.7 L 03/11/21 05:40: WBC 6.2, RBC 2.99 L D, Hgb 9.3 L, Hct 30.2 L, MCV 101.1 H, MCH 31.1, MCHC 30.8 L, RDW 22.3 H, Plt Count 104 L, MPV 11.6 H, Neut % (Auto) 69.9, Lymph % (Auto) 18.5, [place] % (Auto) 6.9, Eos % (Auto) 2.2, Baso % (Auto) 2.5 H, Neut # (Auto) 4.3, Lymph # (Auto) 1.1, [place] # (Auto) 0.4, Eos # (Auto) 0.1, Baso # (Auto) 0.2 03/11/21 05:40: Sodium 140, Potassium 3.8, Chloride 97 L, Carbon Dioxide 40 H, Anion Gap 6.8, BUN 12, Creatinine 0.40 L, Estimated Creat Clear 68, Estimated GFR 151, Est GFR ( Amer) 183 D, Glucose 102 H, Calcium 8.2 L I & O for Last 24 hours: Intake & Output 03/08/21 03/09/21 03/10/21 03/11/21 11:59 11:59 11:59 11:59 Intake Total 1100 / 1100 1220 / 1220 Balance 1100 / 1100 1220 / 1220 Weight 235 lb 6 oz 235 lb 5.989 oz Narrative: Patient is pleasant, alert. Lungs have rhonchi bilaterally. Diminished air movement in the bases. Abdomen soft, nontender. No jaundice. Extremities are warm and well-perfused. Heart rate regular. Neurologic exam shows global weakness. Otherwise clear. Assessment and Plan (1) Anemia Status: Acute Qualifiers: Anemia type: unspecified type Qualified Code(s): D64.9 - Anemia, unspecified Category: Medical Code(s): D64.9 - Anemia, unspecified (2) Colon cancer metastasized to liver Status: Acute Category: Medical Code(s): C18.9 - Malignant neoplasm of colon, unspecified; C78.7 - Secondary malignant neoplasm of liver and intrahepatic bile duct (3) Ovarian cyst, left Status: Acute Category: Medical Code(s): N83.202 - Unspecified ovarian cyst, left side (4) Pleural effusion Status: Acute Category: Medical Code(s): J90 - Pleural effusion, not elsewhere classified (5) Obesity (BMI 30-39.9) Problem details: Complicates all aspects of her care Status: Chronic Category: Medical Code(s): E66.9 - Obesity, unspecified (6) COPD (chronic obstructive pulmonary disease) Status: Chronic Category: Medical Code(s): J44.9 - Chronic obstructive pulmonary disease, unspecified - Assessment and plan all Dx Assessment and Plan for all problems:: Liver lesions with sigmoid tumor consistent with metastastic colon cancer. I was able to get a hold of her son Senthil - and had a long discussion with him. I discussed with him the likelihood of metastatic colon cancer. I discussed with him the likelihood that aggressive therapy would not prolong life in her situation given her multiple medical problems and age. He will discuss with the rest of his brothers and sisters and then we will reach out to him tomorrow to decide whether or not they are okay with pursuing hospice care back at the [facility]. Status post transfusion. Appropriate response. Continue supportive care today and check labs tomorrow.
--- NOTE | 2021-03-11 17:09 | PC.NURSE ---
Pt has been confused at times this shift, at times only oriented to self and other times fully oriented. Pt has yelled out several times stating help me, help me and when staff comes into room pt cannot express what is wrong. Pt has also stated this shift that she is ready to go back to the other hospital that she has cancer and wanted to be with her kids . Pt has been a q2h turn d/t bottom becoming red. Purwick remains in place, urine is clear and dark artie. Pt continues on 2-3 LNC. No other acute changes or complaints, will continue to monitor.
[2021-03-12] VITALS: BP 157/85; PULSE 75; RESP 22; TEMP 36.4; O2SAT 100
[2021-03-12 00:29] VITALS: PULSE 60; PULSE 73; O2SAT 96
[2021-03-12 03:49] VITALS: BP 138/70; PULSE 64; RESP 20; TEMP 36.6; O2SAT 99
[2021-03-12 05:05] VITALS: BMI 38.2
[2021-03-12 06:12] VITALS: PULSE 63; PULSE 64; O2SAT 96
--- NOTE | 2021-03-12 06:57 | PC.NURSE ---
pt rested well overnight, did wake up stating she was having pain in her legs and was treated per MAR, remains on 2L NC with sats 96-100%
[2021-03-12 07:00] LABS: Basophils # 0.1 K/mm3 (0-0.2); Basophils % 2.1 % (0.1-2.0); Eosinophils # 0.1 K/mm3 (0.0-0.4); Hematocrit 29.1 % (37.0-47.0); Hemoglobin 9.3 g/dL (12.2-16.2); Lymphocytes # 1.4 K/mm3 (0.7-4.5); Lymphocytes % 26.5 % (10-50); Mean Corpuscular HGB Conc 31.9 g/dL (31.8-35.4); Mean Corpuscular Hemoglobin 31.5 pg (27.0-31.2); Mean Platelet Volume 11.4 fl (7.4-10.4); Monocytes # 0.4 K/mm3 (0.1-1.0); Monocytes % 7.9 % (1.7-9.3); Neutrophils # 3.2 K/mm3 (1.8-7.8); Neutrophils % 61.6 % (37.0-80.0); Platelet Count 101 K/mm3 (142-424); Red Blood Count 2.94 M/mm3 (4.20-5.40); Red Cell Distribution Width 22.1 % (11.5-17.5); White Blood Count 5.2 K/mm3 (4.8-10.8)
[2021-03-12 07:08] LABS: Alanine Aminotransferase 15 U/L (12-78); Alkaline Phosphatase 138 U/L (38-126); Anion Gap 7.6 mEq/L (5-15); Aspartate Amino Transferase 44 U/L (14-36); Bilirubin,Total 0.7 mg/dl (0.2-1.3); Blood Urea Nitrogen 13 mg/dl (7-17); Calcium 8.1 mg/dl (8.4-10.2); Carbon Dioxide 35 mmol/L (22.0-30.0); Chloride 101 mmol/L (98-107); Creatinine Clearance Estimated 69 mL/min (50-200); Estimated Glomerular Filt Rate 151 ml/min (>60); GFR (African American) 183 ML/MIN (>60); Globulin 3.1 g/dL (1.3-3.2); Glucose 129 mg/dl (74-100); Potassium 3.6 mmoL/L (3.5-5.1); Sodium 140 mmol/L (136-145); Total Protein,Serum 6.1 g/dl (6.3-8.2)
[2021-03-12 08:00] VITALS: BP 140/62; PULSE 62; RESP 20; TEMP 36.6; O2SAT 94
--- NOTE | 2021-03-12 08:53 | HMH.DCSUM ---
General - General Admission date:: 03/10/21 Discharge date: 03/12/21 HPI HPI: 86-year-old white female with multiple medical problems including recurrent pneumonias, history of trach status now off trach, recurrent thrombocytopenia, recurrent chest pain with previously noted mild pleural effusion who was brought to the emergency department from the skilled nursing because of possible GI bleeding. In the emergency department work-up revealed slightly lower hemoglobin, other labs were stable, patient was alert, responded well to oxygen therapy, but CT scan of abdomen and pelvis revealed significant liver lesions that had progressed since her previous scans, including a lesion in the sigmoid colon most consistent with primary sigmoid cancer with liver metastases and pleural effusion most likely malignant. Admitted to floor for further evaluation. Hospital Course Hospital Course: Patient was admitted. She was transferred 2 units of packed cells with good results. She continued to complain that she was not feeling good throughout her hospital stay but had no actual pain. CT scans revealed, unfortunately, the presence of liver is consistent with metastatic disease and a sigmoid mass consistent with a primary colon cancer. She also had worsening pleural effusions consistent with malignant pleural effusions. I discussed this with her and discussed that at her age and given her multiple comorbidities hospice care would be my recommendation given the lack of evidence of life prolongation or enhancement given current chemotherapy options given her widespread disease. Patient requested that we discussed with her family and I discussed the case with her son, Senthil Alcala who will discuss the case with the rest of the family. In the meantime we will transfer patient back to [facility] for hospice consult at that institution. And pending family decision/patient decision regarding further work-up needed. Objective Vital signs: Temp Pulse Resp BP Pulse Ox 97.9 F 63 20 138/70 96 03/12/21 03:49 03/12/21 06:12 03/12/21 03:49 03/12/21 03:49 03/12/21 06:12 no acute distress, obese, chronically ill appearing - *Routine HEENT Exam Head: Present: normocephalic Eye: Present: EOMI, PERRL ENT: Present: mucous membranes moist - *Routine Neck Exam Present: supple - *Routine Respiratory Exam Present: rhonchi Comments: Rhonchi in right base. - *Routine Cardiovascular Exam Present: RRR - *Routine Abdominal Exam Present: soft, normoactive bowel sounds. Absent: tenderness - *Routine Extremities Exam Absent: cyanosis, clubbing, edema Comments: Old debilitated related contractures in her feet. Old brawny changes. - *Routine Skin Exam Present: warm. Absent: rash - Detailed Eye Exam Eyelids: Bilateral normal inspection Results Labs on day of discharge: Labs from last 24 hours 03/12/21 03/12/21 06:30 06:30 WBC 5.2 RBC 2.94 L Hgb 9.3 L Hct 29.1 L MCV 99.0 MCH 31.5 H MCHC 31.9 RDW 22.1 H Plt Count 101 L MPV 11.4 H Neut % (Auto) 61.6 Lymph % (Auto) 26.5 [place] % (Auto) 7.9 Eos % (Auto) 2.0 Baso % (Auto) 2.1 H Neut # (Auto) 3.2 Lymph # (Auto) 1.4 [place] # (Auto) 0.4 Eos # (Auto) 0.1 Baso # (Auto) 0.1 Sodium 140 Potassium 3.6 Chloride 101 Carbon Dioxide 35 H Anion Gap 7.6 BUN 13 Creatinine 0.40 L Estimated Creat Clear 69 Estimated GFR 151 Est GFR ( Amer) 183 Glucose 129 H Calcium 8.1 L Total Bilirubin 0.7 AST 44 H ALT 15 Alkaline Phosphatase 138 H Total Protein 6.1 L Albumin 3.0 L Globulin 3.1 Albumin/Globulin Ratio 1.0 L Preliminary micro results at discharge 03/09/21 23:34 Blood Culture - Preliminary Blood NO GROWTH AFTER 48 HOURS 03/09/21 23:34 Blood Culture - Preliminary Blood NO GROWTH AFTER 48 HOURS DS: Diagnosis - Discharge Diagnosis (1) Anemi
--- NOTE | 2021-03-12 09:05 | SW/DCPLANNER ---
This patient currently resides at [facility] level of care. I spoke with Mandi from [facility] this AM to inform her the plan for this patient is to return to [facility] today with Hospice to evaluate once she returns. I have updated patients family regarding discharge plans. Mandi with [facility] has stated that no further COVID testing is needed.
== END 2021-03-12 12:00 | DRG 375 ==
LOC: ER 22:19 → 2ND 03-10 00:26
PROVIDERS: Admitting Provider Emergency Medicine; Emergency Provider Emergency Medicine; PCP Nurse Practitioner Family; Visit Provider Internal Medicine Adolescent Medicine
DX: C18.7 Malignant neoplasm of sigmoid colon (principal); C78.7 Secondary malignant neoplasm of liver and intrahepatic bile duct; C78.00 Secondary malignant neoplasm of unspecified lung; J91.0 Malignant pleural effusion; J44.9 Chronic obstructive pulmonary disease, unspecified; I10 Essential (primary) hypertension; I48.91 Unspecified atrial fibrillation; D63.0 Anemia in neoplastic disease; Z86.73 Personal history of transient ischemic attack (TIA), and cerebral infarction without residual deficits
CPT/HCPCS: 36415; 71045; 74177; 80048; 80053; 82272; 83605; 84145; 84484; 85014; 85018; 85025; 85651; 86140; 86850; 86870; 87040; 94640; 96365; 96366; 99284; C9803; G0328; P9016; Q9967; U0003; U0005

== ENCOUNTER 2021-03-18 11:09 | Inpatient (IN) | payer OTHER, MEDICAID, MEDICARE, SELFPAY ==
[2021-03-18] VITALS (21 sets, daily range): BP systolic 61–125; BP diastolic 32–83; PULSE 98–140; RESP 18–36; TEMP 36.4–36.8; O2SAT 86–100; BMI 40.3; BMI 39.9
--- NOTE | 2021-03-18 11:39 | HMH.EDGENADL ---
ED Disposition Clinical Impression: Septic shock, Healthcare-associated pneumonia, Metastatic colon cancer in female, Pleural effusion, Bronchial obstruction, Dehydration, Acute kidney injury Urinary tract infection Qualifiers: Urinary tract infection type: site unspecified Hematuria presence: without hematuria Qualified Code(s): N39.0 - Urinary tract infection, site not specified Disposition: Admitted As Inpatient Condition on Discharge: Critical - Critical Care Critical Care Time: Yes Attestation: On 03/18/21, the high probability of a clinically significant, sudden or life threatening deterioration of the following system(s) required my full and direct attention, intervention and personal management. The time I documented below is in addition to time spent performing reported procedures but includes the following listed in this critical care notation. Vital system(s) involved:: Shock (Septic) My critical care processes included: Assessment & monitoring of V/S, Initial and Re-exams, Data Review/Interpretation, Coordinating Care, Medication Orders and management, Documentation Medical Decision Making - Medical Records Medical records reviewed: Yes: I reviewed the patient's medical records. MR Comment: Reviewed discharge summary from recent admission 03/10/2021 through 03/12/2021. Admitted for anemia, possible GI bleed. Received transfusion. Discovered to have new/worsening pleural effusions probably malignant, liver lesions consistent with metastases,: sigmoid lesion suspected to be primary colon cancer. Discharged to intermediate hospice. - Esdras Inquiry Pt receiving controlled substance: No Vital Signs: 03/18/21 11:09 03/18/21 11:37 03/18/21 12:01 Temperature 98.3 F Temperature Source Rectal Pulse Rate Pulse Rate [Radial] 131 H Respiratory Rate 36 H Blood Pressure 99/59 L 103/83 L Blood Pressure [Right Arm] 84/55 L Blood Pressure Mean 68 87 Blood Pressure Mean [Right Arm] 64 Blood Pressure Position [Right Arm] Sitting 02 Sat by Pulse Oximetry 97 94 L 94 L Oxygen Delivery Method Non-Rebreather Oxygen Flow Rate (LPM) 10 03/18/21 13:01 03/18/21 13:03 03/18/21 14:00 Temperature Temperature Source Pulse Rate 124 H 140 H 109 H Pulse Rate [Radial] Respiratory Rate 24 26 H 24 Blood Pressure 61/32 L 72/48 L 98/56 L Blood Pressure [Right Arm] Blood Pressure Mean 41 53 70 Blood Pressure Mean [Right Arm] Blood Pressure Position [Right Arm] 02 Sat by Pulse Oximetry 86 L 88 L 95 Oxygen Delivery Method Nasal Cannula Nasal Cannula Nasal Cannula Oxygen Flow Rate (LPM) 3 3 3 03/18/21 15:00 Temperature Temperature Source Pulse Rate 114 H Pulse Rate [Radial] Respiratory Rate 24 Blood Pressure 98/51 L Blood Pressure [Right Arm] Blood Pressure Mean 66 Blood Pressure Mean [Right Arm] Blood Pressure Position [Right Arm] 02 Sat by Pulse Oximetry 100 Oxygen Delivery Method Oxygen Flow Rate (LPM) - Lab Data Lab Results 03/18/21 11:35: WBC 7.8, RBC 3.06 L, Hgb 9.2 L, Hct 31.7 L, MCV 103.7 H, MCH 30.0, MCHC 28.9 L, RDW 21.5 H, Plt Count 178, MPV 12.9 H, Neut % (Auto) 68.2, Lymph % (Auto) 22.0, [place] % (Auto) 7.5, Eos % (Auto) 2.3, Baso % (Auto) 4.6 H, Neut # (Auto) 5.3, Lymph # (Auto) 1.7, [place] # (Auto) 0.6, Eos # (Auto) 0.2, Baso # (Auto) 0.4 H 03/18/21 11:35: Sodium 142, Potassium 5.8 H, Chloride 93 L, Carbon Dioxide 36 H, Anion Gap 18.8 H, BUN 54 H, Creatinine 1.40 H, Estimated Creat Clear 52, Estimated GFR 36 L, Est GFR ( Amer) 43 L, Glucose 88, Calcium 8.6, Total Bilirubin 1.8 H, AST 138 H, ALT 64, Alkaline Phosphatase 206 H, Total Protein 7.0, Albumin 3.8, Globulin 3.2, Albumin/Globulin Ratio 1.2 03/18/21 11:35: Lactate 5.9 H 03/18/21 11:55: Urine Color Dk yellow, Urine Appearance Turbid, Urine pH 5.5, Ur Specific [place] >= 1.030, Urine Protein Negative, Urine Glucose (UA) Negative, Urine Ketones Negative, Urine Blood 1+, Urine Nitrate Negative, Urine Bilirubi
--- NOTE | 2021-03-18 12:00 | PC.NURSE ---
iv #20 lt ej
--- NOTE | 2021-03-18 12:09 | XR_ITS ---
PROCEDURE INFORMATION: Exam: XR Chest Exam date and time: 03/18/2021 12:09 PM Age: 86 years old Clinical indication: Shortness of breath; Additional info: AMS TECHNIQUE: Imaging protocol: XR of the chest. Views: 1 view. COMPARISON: CR XR CHEST PORTABLE 03/09/2021 11:30 PM FINDINGS: Airway: Rightward deviation of the trachea. Lungs: Near complete opacification of the right hemithorax with combined airspace and pleural disease. Interstitial prominence and worsening left-sided airspace disease. Heart/Mediastinum: Cardiomegaly with obscuration of the right heart border. Bones/joints: Osteopenia and degenerative change. IMPRESSION: 1. Near complete opacification of the right hemithorax with combined airspace and pleural disease. 2. Interstitial prominence and worsening left-sided airspace disease.
--- NOTE | 2021-03-18 12:10 | CT_ITS ---
PROCEDURE INFORMATION: Exam: CT Head Without Contrast Exam date and time: 03/18/2021 12:10 PM Age: 86 years old Clinical indication: Altered mental status/memory loss; Confusion or disorientation; Additional info: AMS not responding well //has known cancer TECHNIQUE: Imaging protocol: Computed tomography of the head without contrast. Radiation optimization: All CT scans at this facility use at least one of these dose optimization techniques: automated exposure control; mA and/or kV adjustment per patient size (includes targeted exams where dose is matched to clinical indication); or iterative reconstruction. COMPARISON: CT HEAD/BRAIN WO CON 05/26/2019 12:00 PM FINDINGS: Brain: Stable postoperative encephalomalacia and calcification in the left cerebellum. Symmetric caliber of the cortical sulci. Small-vessel ischemic change. Cerebral ventricles: Stable postoperative porencephaly, with asymmetric enlargement of the left occipital horn. Paranasal sinuses: Low-grade inflammatory change in the ethmoid and sphenoid sinuses. Mastoid air cells: A few opacified left mastoid air cells. Vasculature: Vascular and dural calcification. Bones/joints: Stable left occipital craniectomy. Hyperostosis. Soft tissues: Unremarkable soft tissues. When correlating with the previous study, no significant interval changes are present. IMPRESSION: Stable appearance of the brain, not significantly changed from 05/26/19.
[2021-03-18 12:18] LABS: Coronavirus 19, PCR Not Detected (NotDetected); Influenza A, PCR Not Detected (NotDetected); Influenza B, PCR Not Detected (NotDetected)
[2021-03-18 12:22] LABS: Microscopic, Urine URINE MICROSCOPIC (MICROSCOPIC)
[2021-03-18 12:22] LABS: Basophils # 0.4 K/mm3 (0-0.2); Basophils % 4.6 % (0.1-2.0); Eosinophils # 0.2 K/mm3 (0.0-0.4); Eosinophils % 2.3 % (0.1-12.0); Hematocrit 31.7 % (37.0-47.0); Hemoglobin 9.2 g/dL (12.2-16.2); Lymphocytes # 1.7 K/mm3 (0.7-4.5); Mean Corpuscular HGB Conc 28.9 g/dL (31.8-35.4); Mean Corpuscular Volume 103.7 fl (81-99); Mean Platelet Volume 12.9 fl (7.4-10.4); Monocytes # 0.6 K/mm3 (0.1-1.0); Monocytes % 7.5 % (1.7-9.3); Neutrophils # 5.3 K/mm3 (1.8-7.8); Neutrophils % 68.2 % (37.0-80.0); Platelet Count 178 K/mm3 (142-424); Red Blood Count 3.06 M/mm3 (4.20-5.40); Red Cell Distribution Width 21.5 % (11.5-17.5); White Blood Count 7.8 K/mm3 (4.8-10.8)
[2021-03-18 12:24] LABS: Chloride 93 mmol/L (98-107); Potassium 5.8 mmoL/L (3.5-5.1); Sodium 142 mmol/L (136-145)
[2021-03-18 12:27] LABS: Alanine Aminotransferase 64 U/L (12-78); Albumin Level 3.8 g/dl (3.5-5.0); Albumin/Globulin Ratio 1.2 (1.1-1.8); Alkaline Phosphatase 206 U/L (38-126); Anion Gap 18.8 mEq/L (5-15); Aspartate Amino Transferase 138 U/L (14-36); Bilirubin,Total 1.8 mg/dl (0.2-1.3); Blood Urea Nitrogen 54 mg/dl (7-17); Calcium 8.6 mg/dl (8.4-10.2); Carbon Dioxide 36 mmol/L (22.0-30.0); Creatinine Clearance Estimated 52 mL/min (50-200); Estimated Glomerular Filt Rate 36 ml/min (>60); GFR (African American) 43 ML/MIN (>60); Globulin 3.2 g/dL (1.3-3.2); Glucose 88 mg/dl (74-100)
[2021-03-18 12:34] LABS: Appearance,Urine TURBID (Clear); Blood, Urine 1+ (Negative); Color,Urine DK YELLOW (Yellow); Glucose,Urine (UA) Negative (Negative); Ketones,Urine Negative (Negative); Leukocyte Esterase,Urine 2+ (Negative); Nitrate,Urine Negative (Negative); PH,Urine 5.5 (5.0-8.5); Protein,Urine Negative (Negative); Specific Gravity, Urine >= 1.030 (1.005-1.030); Urobilinogen,Urine 0.2 EU/dl (0.2)
[2021-03-18 12:41] LABS: Lactic Acid 5.9 mmol/L (0.7-2.1)
[2021-03-18 12:42] LABS: Bilirubin,Urine 2+ (Negative)
--- NOTE | 2021-03-18 12:49 | ECG_ITS ---
APPROVED REPORT Exam: Resting ECG HR:115 bpm ECG Measurements Heart Rate 115 AXES QRSd 84 QRS 5 QT 330 T 130 QTc 456 Conclusion Atrial fibrillation with rapid ventricular response with premature ventricular or aberrantly conducted complexes Low voltage QRS ST & T wave abnormality, consider lateral ischemia or digitalis effect Abnormal ECG Electronically signed by : Catracho Yun MD 03/19/2021 19:44:22
[2021-03-18 12:51] LABS: Bacteria,Urine 2+ /lpf
--- NOTE | 2021-03-18 13:05 | CT_ITS ---
PROCEDURE INFORMATION: Exam: CT Chest Without Contrast; Diagnostic Exam date and time: 03/18/2021 1:05 PM Age: 86 years old Clinical indication: Shortness of breath; Additional info: White out right hemithorax TECHNIQUE: Imaging protocol: Diagnostic computed tomography of the chest without contrast. Radiation optimization: All CT scans at this facility use at least one of these dose optimization techniques: automated exposure control; mA and/or kV adjustment per patient size (includes targeted exams where dose is matched to clinical indication); or iterative reconstruction. COMPARISON: CR XR CHEST PORTABLE 03/18/2021 12:22 PM FINDINGS: Lungs: Obstruction at the level of the right mainstem bronchus with endobronchial fluid and bronchial wall calcification. Right lung atelectasis and calcifications. Combined interstitial and airspace disease in the aerated left lung. Pleural spaces: Bilateral pleural effusions, right greater than left. Heart: Cardiomegaly and coronary artery calcification. Aorta: Calcification and ectasia of the thoracic aorta. Lymph nodes: Enlarged mediastinal lymph nodes, including 1.8 x 1.7 by 1.7 cm right paratracheal lymph node. Obscuration of the right hilum. Upper abdomen: Inhomogeneous attenuation in the liver and calcified granuloma. Cholelithiasis. Spleen upper limits of normal size. 2.4 cm right adrenal adenoma. Questionable wall thickening in the nondistended stomach. Small quantity of intraperitoneal fluid. Bones/joints: Osteopenia, degenerative change, and ligamentous calcification. Old right rib fractures. Soft tissues: Subcutaneous edema. IMPRESSION: 1. Obstruction at the level of the right mainstem bronchus with endobronchial fluid and bronchial wall calcification. 2. Right lung atelectasis and calcifications. 3. Bilateral pleural effusions, right greater than left. 4. Additional findings as described above. COMMENTS: Consistent with the [employer]'s Incidental Findings Committee white paper (J Am Marcelina Radiol 2017): For any incidental adrenal lesion greater than 1 cm but less than 4 cm classified in this report as benign, likely benign, or containing fat (including classification as an adenoma or myelolipoma), no follow-up imaging is recommended per consensus recommendations based on imaging criteria. Further lab evaluation could be pursued if warranted based on clinical findings.
--- NOTE | 2021-03-18 14:18 | HMH.PHACONS ---
- Pharmacy Consult Date: 03/18/21 Time: 14:18 Referring provider: DR. ROY Reason for Consult:: VANCOMYCIN DOSING Allergies and ADEs:: Allergies Allergy/AdvReac Type Severity Reaction Status Date / Time levofloxacin [From Levaquin] Allergy Verified 03/09/20 14:11 Home Medications:: Home Medications Medication Instructions Recorded Confirmed Type Buspirone HCl [Buspar 10mg 10 mg PO TID 05/16/19 03/18/21 History tablet] Escitalopram Oxalate [Lexapro] 15 mg PO HS 05/16/19 03/18/21 History Furosemide [Lasix 20mg tablet] 20 mg PO DAILY 05/16/19 03/18/21 History Ipratropium/Albuterol Sulfate 3 ml IH Q6H 05/16/19 03/18/21 History [Duoneb 3mL neb] Sennosides/Docusate Sodium [Senna 1 each PO BID 05/16/19 03/18/21 History Plus Tablet] Metoprolol Tartrate [Lopressor 25 mg PO BID 10/21/19 03/18/21 History 25mg tablet] Tramadol HCl [Tramadol 50mg 100 mg PO Q8HP PRN 10/21/19 03/18/21 History Tab] sulfamethoxazole 800 1 tab PO MOWEFR 01/06/20 03/18/21 History mg-trimethoprim 160 mg tablet acetaminophen 325 mg capsule 650 mg PO Q6H PRN cap 03/09/20 03/18/21 History calcium carb-vit D3-minerals 600 1 each PO BID 03/09/20 03/18/21 History mg calcium-200 unit tablet Gabapentin [Gabapentin 100mg Cap] 100 mg PO BID 03/09/21 03/18/21 History Ferrous Sulfate [Ferrous Sulfate 325 mg PO DAILY 03/10/21 03/18/21 History 325mg Tablet] Loperamide HCl [Loperamide] 2 mg PO Q6HP PRN 03/10/21 03/18/21 History Multivitamin 1 each PO DAILY 03/10/21 03/18/21 History Omeprazole [Omeprazole 20mg Tab] 20 mg PO BID 03/10/21 03/18/21 History levETIRAcetam [Keppra 500mg tablet] 500 mg PO BID 03/10/21 03/18/21 History polyethylene glycoL 3350 [Miralax 17 gm PO DAILY 03/10/21 03/18/21 History Powder] Height: 1.68 m Weight: 113.398 kg Laboratory Results:: Laboratory Results - last 24 hr 03/18/21 11:35: WBC 7.8, RBC 3.06 L, Hgb 9.2 L, Hct 31.7 L, MCV 103.7 H, MCH 30.0, MCHC 28.9 L, RDW 21.5 H, Plt Count 178, MPV 12.9 H, Neut % (Auto) 68.2, Lymph % (Auto) 22.0, [place] % (Auto) 7.5, Eos % (Auto) 2.3, Baso % (Auto) 4.6 H, Neut # (Auto) 5.3, Lymph # (Auto) 1.7, [place] # (Auto) 0.6, Eos # (Auto) 0.2, Baso # (Auto) 0.4 H 03/18/21 11:35: Sodium 142, Potassium 5.8 H, Chloride 93 L, Carbon Dioxide 36 H, Anion Gap 18.8 H, BUN 54 H, Creatinine 1.40 H, Estimated Creat Clear 52, Estimated GFR 36 L, Est GFR ( Amer) 43 L, Glucose 88, Calcium 8.6, Total Bilirubin 1.8 H, AST 138 H, ALT 64, Alkaline Phosphatase 206 H, Total Protein 7.0, Albumin 3.8, Globulin 3.2, Albumin/Globulin Ratio 1.2 03/18/21 11:35: Lactate 5.9 H 03/18/21 11:55: Urine Color Dk yellow, Urine Appearance Turbid, Urine pH 5.5, Ur Specific [place] >= 1.030, Urine Protein Negative, Urine Glucose (UA) Negative, Urine Ketones Negative, Urine Blood 1+, Urine Nitrate Negative, Urine Bilirubin 2+ A, Urine Urobilinogen 0.2, Ur Leukocyte Esterase 2+ A, Urine RBC 5-10, Urine WBC 5-10, Ur Squamous Epith Cells None, Urine Bacteria 2+ 03/18/21 12:08: SARS-CoV-2 (PCR) Not detected, Influenza A Untype (PCR) Not detected, Influenza Type B (PCR) Not detected Medical History: Reports:: Arrhythmia, Atrial Fibrillation, Cancer, Chronic Obstructive Pulmonary Disease (COPD), Cerebrovascular Accident, Hypertension, MRSA, Seizures, Transient Ischemic Attacks (TIA) Denies:: Diabetes Mellitus Type 1, Diabetes Mellitus Type 2, Internal Pacemaker Assessment and Plan - Assessment and plan all Dx Assessment and Plan for all problems:: Pharmacokinetic dosing service Objective: Patient: Floor: Age: 86 yo Serum creatinine: 1.40 mg/dL Height: 66.0 Inches Weight (kg): 113.3 Assessment: IBW (kg): 59.30 Dosing wt(kg): 113.3 Estimated Creatinine clearance (ml/min): 27.0 CRCL method: Cockcroft and Gault using ibw(default). Drug selected: Vancomycin Loading dose (mg):
--- NOTE | 2021-03-18 16:00 | PC.NURSE ---
family at bedside
--- NOTE | 2021-03-18 16:15 | PC.NURSE ---
spoke with [facility] vanc and levophed are compatible.
[2021-03-18 16:16] LABS: Reflex Lactic Add Lactic Reflex
--- NOTE | 2021-03-18 17:18 | PC.NURSE ---
report called to floor
[2021-03-18 20:22] LABS: Chloride 113 mmol/L (98-107); Sodium 141 mmol/L (136-145)
[2021-03-18 20:23] LABS: Potassium 5.1 mmoL/L (3.5-5.1)
[2021-03-18 21:13] LABS: Blood Urea Nitrogen 55 mg/dl (7-17); Creatinine Clearance Estimated 50 mL/min (50-200); Estimated Glomerular Filt Rate 39 ml/min (>60); GFR (African American) 47 ML/MIN (>60)
[2021-03-18 21:14] LABS: Anion Gap -2.9 mEq/L (5-15); Calcium 7.9 mg/dl (8.4-10.2); Carbon Dioxide 36 mmol/L (22.0-30.0)
[2021-03-18 21:18] LABS: Glucose 115 mg/dl (74-100)
[2021-03-19] VITALS (17 sets, daily range): BP systolic 80–128; BP diastolic 47–75; PULSE 79–110; RESP 16–23; TEMP 36.5–37.1; O2SAT 90–100; BMI 39.9
--- NOTE | 2021-03-19 01:06 | PC.NURSE ---
increased levophed drip to 5mcg/min from 2mcg/min due to map less than 65 (80/47 map 58)
[2021-03-19 06:38] LABS: Basophils # 0.2 K/mm3 (0-0.2); Basophils % 2.5 % (0.1-2.0); Eosinophils # 0.1 K/mm3 (0.0-0.4); Eosinophils % 1.8 % (0.1-12.0); Hematocrit 27.9 % (37.0-47.0); Hemoglobin 8.7 g/dL (12.2-16.2); Lymphocytes # 1.4 K/mm3 (0.7-4.5); Lymphocytes % 19.3 % (10-50); Mean Corpuscular HGB Conc 31.1 g/dL (31.8-35.4); Mean Corpuscular Hemoglobin 31.1 pg (27.0-31.2); Mean Corpuscular Volume 99.9 fl (81-99); Mean Platelet Volume 13.9 fl (7.4-10.4); Monocytes # 0.8 K/mm3 (0.1-1.0); Monocytes % 11.4 % (1.7-9.3); Neutrophils # 4.8 K/mm3 (1.8-7.8); Platelet Count 116 K/mm3 (142-424); Red Blood Count 2.79 M/mm3 (4.20-5.40); Red Cell Distribution Width 21.6 % (11.5-17.5); White Blood Count 7.4 K/mm3 (4.8-10.8)
[2021-03-19 06:57] LABS: Alanine Aminotransferase 67 U/L (12-78); Albumin Level 3.1 g/dl (3.5-5.0); Albumin/Globulin Ratio 1.1 (1.1-1.8); Alkaline Phosphatase 147 U/L (38-126); Anion Gap 13.3 mEq/L (5-15); Aspartate Amino Transferase 135 U/L (14-36); Bilirubin,Total 0.6 mg/dl (0.2-1.3); Blood Urea Nitrogen 58 mg/dl (7-17); Calcium 7.7 mg/dl (8.4-10.2); Carbon Dioxide 32 mmol/L (22.0-30.0); Chloride 104 mmol/L (98-107); Creatinine Clearance Estimated 65 mL/min (50-200); Estimated Glomerular Filt Rate 59 ml/min (>60); GFR (African American) 72 ML/MIN (>60); Globulin 2.7 g/dL (1.3-3.2); Glucose 89 mg/dl (74-100); Magnesium 1.6 mg/dl (1.6-2.3); Phosphorous 3.4 mg/dl (2.5-4.5); Potassium 5.3 mmoL/L (3.5-5.1); Sodium 144 mmol/L (136-145); Total Protein,Serum 5.8 g/dl (6.3-8.2)
--- NOTE | 2021-03-19 07:20 | HMH.PHAVTE ---
[facility] Pharmacy VTE Monitoring - Patient Demographics Admission date: 03/18/21 Report Date: 03/19/21 Time: 07:20 Allergies/Adverse Reactions: Patient Allergies levofloxacin [From Levaquin] Allergy (Verified 03/09/20 14:11) Height: 1.6 m Weight: 102.2 kg Patient Problems: Current Active Problems Pleural effusion (Acute) Septic shock (Acute) Healthcare-associated pneumonia (Acute) Urinary tract infection (Acute) Metastatic colon cancer in female (Acute) Bronchial obstruction (Acute) Dehydration (Acute) Acute kidney injury (Acute) - VTE Risk Labs: VTE Related Lab Results Hgb 8.7 g/dL (12.2-16.2) L 03/19/21 05:26 Hct 27.9 % (37.0-47.0) L 03/19/21 05:26 Plt Count 116 K/mm3 (142-424) L D 03/19/21 05:26 BUN 58 mg/dl (7-17) H 03/19/21 05:26 Creatinine 0.90 mg/dl (0.52-1.04) D 03/19/21 05:26 Estimated Creat Clear 65 mL/min (50-200) 03/19/21 05:26 - Prophylaxis VTE Prophylaxis Ordered?: Yes Types of VTE Prophylaxis: TEDS Knee High Location of Applied Device: Bilateral Lower Extremeties
--- NOTE | 2021-03-19 07:49 | HMH.PHACONS ---
- Pharmacy Consult Date: 03/19/21 Time: 07:49 Referring provider: DR. DAVIS Reason for Consult:: VANCOMYCIN DOSING Allergies and ADEs:: Allergies Allergy/AdvReac Type Severity Reaction Status Date / Time levofloxacin [From Levaquin] Allergy Verified 03/09/20 14:11 Home Medications:: Home Medications Medication Instructions Recorded Confirmed Type Buspirone HCl [Buspar 10mg 10 mg PO TID 05/16/19 03/18/21 History tablet] Escitalopram Oxalate [Lexapro] 15 mg PO HS 05/16/19 03/18/21 History Furosemide [Lasix 20mg tablet] 20 mg PO DAILY 05/16/19 03/18/21 History Ipratropium/Albuterol Sulfate 3 ml IH Q6H 05/16/19 03/18/21 History [Duoneb 3mL neb] Sennosides/Docusate Sodium [Senna 1 each PO BID 05/16/19 03/18/21 History Plus Tablet] Metoprolol Tartrate [Lopressor 25 mg PO BID 10/21/19 03/18/21 History 25mg tablet] Tramadol HCl [Tramadol 50mg 100 mg PO Q8HP PRN 10/21/19 03/18/21 History Tab] sulfamethoxazole 800 1 tab PO MOWEFR 01/06/20 03/18/21 History mg-trimethoprim 160 mg tablet acetaminophen 325 mg capsule 650 mg PO Q6H PRN cap 03/09/20 03/18/21 History calcium carb-vit D3-minerals 600 1 each PO BID 03/09/20 03/18/21 History mg calcium-200 unit tablet Gabapentin [Gabapentin 100mg Cap] 100 mg PO BID 03/09/21 03/18/21 History Ferrous Sulfate [Ferrous Sulfate 325 mg PO DAILY 03/10/21 03/18/21 History 325mg Tablet] Loperamide HCl [Loperamide] 2 mg PO Q6HP PRN 03/10/21 03/18/21 History Multivitamin 1 each PO DAILY 03/10/21 03/18/21 History Omeprazole [Omeprazole 20mg Tab] 20 mg PO BID 03/10/21 03/18/21 History levETIRAcetam [Keppra 500mg tablet] 500 mg PO BID 03/10/21 03/18/21 History polyethylene glycoL 3350 [Miralax 17 gm PO DAILY 03/10/21 03/18/21 History Powder] Height: 1.6 m Weight: 102.2 kg Laboratory Results:: Laboratory Results - last 24 hr 03/18/21 11:35: WBC 7.8, RBC 3.06 L, Hgb 9.2 L, Hct 31.7 L, MCV 103.7 H, MCH 30.0, MCHC 28.9 L, RDW 21.5 H, Plt Count 178, MPV 12.9 H, Neut % (Auto) 68.2, Lymph % (Auto) 22.0, [place] % (Auto) 7.5, Eos % (Auto) 2.3, Baso % (Auto) 4.6 H, Neut # (Auto) 5.3, Lymph # (Auto) 1.7, [place] # (Auto) 0.6, Eos # (Auto) 0.2, Baso # (Auto) 0.4 H 03/18/21 11:35: Sodium 142, Potassium 5.8 H, Chloride 93 L, Carbon Dioxide 36 H, Anion Gap 18.8 H, BUN 54 H, Creatinine 1.40 H, Estimated Creat Clear 52, Estimated GFR 36 L, Est GFR ( Amer) 43 L, Glucose 88, Calcium 8.6, Total Bilirubin 1.8 H, AST 138 H, ALT 64, Alkaline Phosphatase 206 H, Total Protein 7.0, Albumin 3.8, Globulin 3.2, Albumin/Globulin Ratio 1.2 03/18/21 11:35: Lactate 5.9 H 03/18/21 11:55: Urine Color Dk yellow, Urine Appearance Turbid, Urine pH 5.5, Ur Specific [place] >= 1.030, Urine Protein Negative, Urine Glucose (UA) Negative, Urine Ketones Negative, Urine Blood 1+, Urine Nitrate Negative, Urine Bilirubin 2+ A, Urine Urobilinogen 0.2, Ur Leukocyte Esterase 2+ A, Urine RBC 5-10, Urine WBC 5-10, Ur Squamous Epith Cells None, Urine Bacteria 2+ 03/18/21 12:08: SARS-CoV-2 (PCR) Not detected, Influenza A Untype (PCR) Not detected, Influenza Type B (PCR) Not detected 03/18/21 16:35: Lactate 1.0 03/18/21 21:00: Sodium 141, Potassium 5.1, Chloride 113 H, Carbon Dioxide 36 H, Anion Gap -2.9 L, BUN 55 H, Creatinine 1.30 H, Estimated Creat Clear 50, Estimated GFR 39 L, Est GFR ( Amer) 47 L, Glucose 115 H D, Calcium 7.9 L 03/19/21 05:26: WBC 7.4, RBC 2.79 L, Hgb 8.7 L, Hct 27.9 L, MCV 99.9 H, MCH 31.1, MCHC 31.1 L, RDW 21.6 H, Plt Count 116 L D, MPV 13.9 H, Neut % (Auto) 65.0, Lymph % (Auto) 19.3, [place] % (Auto) 11.4 H, Eos % (Auto) 1.8, Baso % (Auto) 2.5 H, Neut # (Auto) 4.8, Lymph # (Auto) 1.4, [place] # (Auto) 0.8, Eos # (Auto) 0.1, Baso # (Auto) 0.2 03/19/21 05:26: Sodium 144, Potassium 5.3 H, Chloride 104, Carbon Dioxide 32 H, Anion Gap 13.3, BUN 58 H, Creatinine 0.90 D, Estimated Creat Clear 65, Estimated GFR 59, Est GFR ( Amer) 72 D, Glucose 89 D, Calcium 7.7 L, Phosphorus 3.4, Magnesium 1.6
--- NOTE | 2021-03-19 08:00 | HMH.PHAINT ---
MEDICATION RECONCILIATION COMPLETED ON PATIENT USING DISCHARGE SUMMARY FROM PREVIOUS ADMISSION. -ANAND PICKETT, LIANNED
--- NOTE | 2021-03-19 08:29 | HMH.HP ---
*Admission Date: 03/18/21 *Chief complaint: Sepsis/aspiration pneumonia/multiorgan failure *History of present illness: 86-year-old white female who is here about a week and a half ago with abdominal pain and GI bleeding who was found to have metastatic disease and was placed on hospice care and transferred back to her longterm. Unfortunately, yesterday morning she became unresponsive and some of her family members were visiting and demanded that she be transferred to the hospital. In the emergency department several children were there and one of her children, apparently her youngest son named Alyssa, demanded that she have everything done and she was admitted to hospital with pressors, IV antibiotics and cardiac monitoring. Overnight she is remained relatively stable. On Levophed, antibiotics but has been somnolent and comatose. [facility] History I have reviewed the patient's past medical history: Yes Medical History: Reports:: Arrhythmia, Atrial Fibrillation, Cancer, Chronic Obstructive Pulmonary Disease (COPD), Cerebrovascular Accident, Hypertension, MRSA, Seizures, Transient Ischemic Attacks (TIA) Denies:: Diabetes Mellitus Type 1, Diabetes Mellitus Type 2, Internal Pacemaker *Have you ever received a pneumonia vaccine?: Yes *Have you received a flu vaccine this season?: Yes Other Medical History: Reports: Anemia Other Surgeries: Yes: Other. No: Pacemaker Amputation: No - *Social History Smoking Status: Unknown if ever smoked Tobacco Type: cigarettes Alcohol Intake: never *Occupational Status:: unemployed Housing: longterm Household Members: other *Travel in the last 8 weeks: None Family Hx:: Unable to obtain Review of Systems - Review of Systems Review of systems:: unable to obtain Meds Home Medications Medication Instructions Recorded Confirmed Type Buspirone HCl [Buspar 10mg 10 mg PO TID 05/16/19 03/18/21 History tablet] Escitalopram Oxalate [Lexapro] 15 mg PO HS 05/16/19 03/18/21 History Furosemide [Lasix 20mg tablet] 20 mg PO DAILY 05/16/19 03/18/21 History Ipratropium/Albuterol Sulfate 3 ml IH Q6H 05/16/19 03/18/21 History [Duoneb 3mL neb] Sennosides/Docusate Sodium [Senna 1 each PO BID 05/16/19 03/18/21 History Plus Tablet] Metoprolol Tartrate [Lopressor 25 mg PO BID 10/21/19 03/18/21 History 25mg tablet] Tramadol HCl [Tramadol 50mg 100 mg PO Q8HP PRN 10/21/19 03/18/21 History Tab] sulfamethoxazole 800 1 tab PO MOWEFR 01/06/20 03/18/21 History mg-trimethoprim 160 mg tablet acetaminophen 325 mg capsule 650 mg PO Q6HP PRN cap 03/09/20 03/19/21 History calcium carb-vit D3-minerals 600 1 each PO BID 03/09/20 03/18/21 History mg calcium-200 unit tablet Gabapentin [Gabapentin 100mg Cap] 100 mg PO BID 03/09/21 03/18/21 History Ferrous Sulfate [Ferrous Sulfate 325 mg PO DAILY 03/10/21 03/18/21 History 325mg Tablet] Loperamide HCl [Loperamide] 2 mg PO Q6HP PRN 03/10/21 03/18/21 History Multivitamin 1 tab PO DAILY 03/10/21 03/19/21 History Omeprazole [Omeprazole 20mg Tab] 20 mg PO BID 03/10/21 03/18/21 History levETIRAcetam [Keppra 500mg tablet] 500 mg PO BID 03/10/21 03/18/21 History polyethylene glycoL 3350 [Miralax 17 gm PO DAILY 03/10/21 03/18/21 History Powder] Allergies Allergy/AdvReac Type Severity Reaction Status Date / Time levofloxacin [From Levaquin] Allergy Verified 03/09/20 14:11 Exam Vital signs and Labs for Last 24 Hours: Temp Pulse Resp BP Pulse Ox 98.7 F 101 H 23 124/75 94 L 03/19/21 03:00 03/19/21 06:37 03/19/21 06:37 03/19/21 06:37 03/19/21 06:37 Laboratory Results - last 24 hr 03/18/21 11:35: WBC 7.8, RBC 3.06 L, Hgb 9.2 L, Hct 31.7 L, MCV 103.7 H, MCH 30.0, MCHC 28.9 L, RDW 21.5 H, Plt Count 178, MPV 12.9 H, Neut % (Auto) 68.2, Lymph % (Auto) 22.0, [place] % (Auto) 7.5, Eos % (Auto) 2.3, Baso % (Auto) 4.6 H, Neut # (Auto) 5.3, Lymph # (Auto) 1.7, [place] # (Auto) 0.6, Eos # (Auto) 0.2, Baso # (Auto) 0.4 H 03/18/21 11:35: Sodium
--- NOTE | 2021-03-19 09:17 | SW/DCPLANNER ---
Addendum entered by Rosanne Carrillo 03/20/21 10:21: This patient will discharge back to [facility] [place] today under Hospice Care. Per Mandi with [facility] [place] no further COVID testing is needed. Addendum entered by Rosanne Carrillo 03/19/21 12:28: Per Syeda Gonzalez w/ Hospice this patients stay is related to Hospice diagnosis. Patient never dismissed Hospice services. Addendum entered by Rosanne Carrillo 03/19/21 09:39: Per Syeda Gonzalez this patient was admitted to Hospice on 03/15. Syeda has stated that she will send RN and Electronic Warfare Specialist to speak with patients family this AM. Original Note: This patient currently resides at [facility] [place]. Patient information has been faxed to [facility]. Dr Yun has requested that Hospice evaluate this patient while in the hospital. Patient could potentially discharge back to [facility] [place] tomorrow. I will follow up with Hospice once patient information is reviewed.
--- NOTE | 2021-03-19 15:37 | PC.NURSE ---
This RN wasted 0.5mL of roxanol w/ C. Aguila WERNER. When going on the omni, there were no available meds to waste.
--- NOTE | 2021-03-19 16:08 | PC.NURSE ---
Levophed gtt turned off at 0745 this am, VS as documented in intervention. Pt transferred out of [place] at 0830. Per Dr Yun pt is now a DNR per verbal order from patients oldest son Senthil. Paper work filled out and signed by MD. She is also under care of hospice. felt hat flanging operator, Kamila, came to see patient and stayed for a couple of hours and was updated on poc. Pt has been restless at times, yelling out for help but unable to specify what she needs help with. She has been repositioned as needed for comfort. Appetite has been poor with her refusing her meals. She has mainly been requesting water to drink and has been quite thirsty. Her curry is to bedside draining clear yellow urine. NS is infusing at 50mls/hr per MD order. Teds to BLE. Old trach stoma noted, old peg site noted to abd. Pt has scattered petechiae and purple spots to ble. Scattered bruising to extremities. She has had one large liquid bowel movement this shift. Roxanol was given x1 for restlessness and generalized pain. Report given to Catia Hull RN at approx 1500.
--- NOTE | 2021-03-20 03:43 | PC.NURSE ---
PT A&OX2. TOLERATING 3LNC WELL. HAS SLEPT MAJORITY OF SHIFT. HAS BEEN TURNED Q2H. PT HAS HAD NO C/O THUS FAR. BREATHING UNLABORED AND EVEN. VSS WILL CONTINUE TO MONITOR.
[2021-03-20 05:00] VITALS: BMI 36.1
[2021-03-20 05:39] VITALS: PULSE 95; PULSE 99; O2SAT 98
--- NOTE | 2021-03-20 07:49 | HMH.DCSUM ---
General - General Admission date:: 03/18/21 Discharge date: 03/20/21 HPI HPI: 86-year-old white female who is here about a week and a half ago with abdominal pain and GI bleeding who was found to have metastatic disease and was placed on hospice care and transferred back to her longterm. Unfortunately, yesterday morning she became unresponsive and some of her family members were visiting and demanded that she be transferred to the hospital. In the emergency department several children were there and one of her children, apparently her youngest son named Alyssa, demanded that she have everything done and she was admitted to hospital with pressors, IV antibiotics and cardiac monitoring. Overnight she is remained relatively stable. On Levophed, antibiotics but has been somnolent and comatose. Hospital Course Hospital Course: 86-year-old female with multiple comorbidities including metastatic colon cancer, right-sided pleural effusion with collapse of right lung, septic shock on admission to the ER. Initially treated aggressively with IV fluids and antibiotics. After extensive discussion with family, goals of comfort care and returning to hospice established. At this time have discontinued antibiotics and fluids. Allow pleasure feeds. Enema on day of discharge due to discomfort and abdominal distention with no bowel movement in the days, proceeded for palliative measures. Plan to discharge back to [facility] and resume hospice care while there. Patient terminally ill, imminent. Decision maker for family established to be Senthil the oldest of her children. Discussions with Dr. Yun, son is emphatic in his desire that she be placed on hospice care and maintain DNR status. He is also confirmed this desire with Stephanie Hathaway RN and care management at [facility] Continue Roxanol therapy as needed. Encourage compassionate visitation with family. No further labs or work-up. Objective Vital signs: Temp Pulse Resp BP Pulse Ox 98.3 F 99 H 18 126/57 L 98 03/19/21 20:00 03/20/21 05:39 03/19/21 20:00 03/19/21 20:00 03/20/21 05:39 Narrative: - Constitutional moderate distress, morbidly obese, obtunded - *Routine HEENT Exam Head: Present: normocephalic Eye: Present: EOMI, PERRL ENT: Present: mucous membranes dry - *Routine Neck Exam Present: supple. Absent: lymphadenopathy - *Routine Respiratory Exam Present: prolonged expiratory phase, rhonchi; absent breath sounds on right side. - *Routine Cardiovascular Exam Present: RRR - *Routine Abdominal Exam Present: soft, distended/obese. Absent: tenderness - *Routine Extremities Exam Present: edema. Absent: cyanosis, clubbing - *Routine Skin Exam Present: warm. Absent: rash - *Routine Neurological Exam Present: altered mental status Results Labs on day of discharge: Labs from last 24 hours 03/18/21 11:55 Urine Color Dk yellow Urine Appearance Turbid Urine pH 5.5 Ur Specific [place] >= 1.030 Urine Protein Negative Urine Glucose (UA) Negative Urine Ketones Negative Urine Blood 1+ Urine Nitrate Negative Urine Bilirubin 2+ A Urine Urobilinogen 0.2 Ur Leukocyte Esterase 2+ A Urine RBC 5-10 Urine WBC 5-10 Ur Squamous Epith Cells None Urine Bacteria 2+ Preliminary micro results at discharge 03/18/21 11:55 Urine Culture - Preliminary Urine,Catheterized Gram Negative Rods DS: Diagnosis - Discharge Diagnosis (1) Metastatic colon cancer in female Status: Acute (2) Pleural effusion Status: Acute (3) Septic shock Status: Acute Discharge Plan - Patient Discharge Instructions ACTIVITY: Bed rest DIET: continue same diet Patient Instructions: Septic Shock, DI for Dehydration -- Adult, DI for Pneumonia -- Adult, Acute Kidney Injury, DI for Urinary Tract Infection (UTI), DI for Pleural Effusion, Catheter-associated Urinary T
[2021-03-20 08:00] VITALS: BP 104/80; PULSE 105; RESP 16; TEMP 36.7; O2SAT 96
[2021-03-20 12:55] VITALS: PULSE 86; O2SAT 98
[2021-03-24 05:10] LABS: Levetiracetam (Keppra) 20.9 ug/mL (10.0-40.0)
== END 2021-03-20 13:36 | disposition hospice, inpatient (51) | DRG 871 ==
LOC: ER 14:55 → 2ND 15:24
PROVIDERS: Admitting Provider Internal Medicine Adolescent Medicine; Emergency Provider Emergency Medicine; PCP Internal Medicine Adolescent Medicine; Visit Provider Internal Medicine Adolescent Medicine
DX: A41.9 Sepsis, unspecified organism (principal); J18.9 Pneumonia, unspecified organism; R65.21 Severe sepsis with septic shock; N39.0 Urinary tract infection, site not specified; N17.9 Acute kidney failure, unspecified; C79.9 Secondary malignant neoplasm of unspecified site; C18.9 Malignant neoplasm of colon, unspecified; Z66 Do not resuscitate; J98.19 Other pulmonary collapse; Z51.5 Encounter for palliative care; J90 Pleural effusion, not elsewhere classified; Y95 Nosocomial condition; E86.0 Dehydration; I10 Essential (primary) hypertension; Z86.73 Personal history of transient ischemic attack (TIA), and cerebral infarction without residual deficits; J44.9 Chronic obstructive pulmonary disease, unspecified
CPT/HCPCS: 36415; 70450; 71045; 71250; 80048; 80053; 80177; 81001; 83605; 83735; 84100; 85025; 87040; 87086; 87088; 87186; 93005; 94640; 94760; 94761; 96365; 96367; 96375; 99282; C9803; J1953; U0003; U0005